=== PATIENT | male | born 1960 | race African-American/Black ===

== ENCOUNTER 2020-05-22 21:01 | Inpatient (IN) | payer BC ==
[~2020-05-22] VITALS: Ht 177.8 cm; Wt 64.5 kg
[2020-05-22 21:45] VITALS: BP 170/69
[2020-05-22 22:06] LABS: BASOPHILS 0.2 % (0-2); EOSINOPHILS 0.2 % (0-7); HEMATOCRIT 25.6 % (42.0-54.0); HEMOGLOBIN 8.2 g/dL (13.5-17.5); IMMATURE GRANULOCYTES 0.3 % (0-5); LYMPHOCYTES 9.1 % (15-50); MCV 75.1 fL (80.0-100.0); MEAN PLATELET VOLUME 9.4 fL (7.4-10.4); MONOCYTES 3.9 % (2-11); NEUTROPHILS 86.3 % (40-80); PLATELET COUNT 310 10x3/uL (130-400); RBC 3.41 10x6/uL (4.20-6.10); RDW 13.1 % (11.5-14.5)
[2020-05-22 22:20] LABS: INR 1.11 (0.85-1.17); PROTIME 14.2 SECONDS (11.6-15.0)
[2020-05-22 22:21] LABS: APTT 36.1 SECONDS (22.8-39.4)
[2020-05-22 22:27] LABS: CALC OSMOLALITY 317 mosm/kg (275-300); CALCIUM 8.3 mg/dL (8.5-10.1); CARBON DIOXIDE 19.1 mmol/L (21.0-32.0); CHLORIDE - SERUM 106 mmol/L (98-107); CREATININE - SERUM 11.5 mg/dL (0.6-1.3); GLUCOSE 175 mg/dL (74-106); POTASSIUM - SERUM 5.4 mmol/L (3.5-5.1); SODIUM 139 mmol/L (136-145); eGFR NON AFRICAN AMERICAN 5 mL/min (90-120)
[2020-05-22 22:34] LABS: UREA NITROGEN 113 mg/dL (7-18)
[2020-05-22 22:46] LABS: ALBUMIN 1.7 g/dL (3.4-5.0); ALKALINE PHOSPHATASE 44 U/L (30-120); ALT (SGPT) 15 U/L (10-68); BILIRUBIN - TOTAL 0.23 mg/dL (0.2-1.3); CREATINE KINASE 175 UL (21-232); MAGNESIUM - SERUM 2.5 mg/dL (1.8-2.4); PROTEIN - SERUM 6.7 g/dL (6.4-8.2); TROPONIN-I 0.053 ng/mL (0.000-0.060)
[2020-05-22 23:45] VITALS: BP 172/86
[2020-05-23 01:17] VITALS: BP 168/81
[2020-05-23] MEDS ORDERED: OMEPRAZOLE40 MG PO (03:00)
[2020-05-23] MEDS ORDERED: NORVASC10 MG PO (03:00)
[2020-05-23] MEDS ORDERED: FUROSEMIDE20 MG PO (03:01)
[2020-05-23] MEDS ORDERED: PLAVIX75 MG PO (03:01)
[2020-05-23] MEDS ORDERED: COREG12.5 MG PO (03:02)
[2020-05-23 03:54] VITALS: BP 194/92
--- NOTE | 2020-05-23 04:18 | NUR ---
SPOKE WITH , AUSTEN, PASSCODE PROVIDED. UPDATE GIVEN, QUESTIONS ANSWERED.
[2020-05-23 05:05] VITALS: BMI 17.7
[2020-05-23 07:17] VITALS: BP 202/121
[2020-05-23 07:28] LABS: ALBUMIN 1.4 g/dL (3.4-5.0); ANION GAP 22.7 mmol/L (8-16); BILIRUBIN - TOTAL 0.2 mg/dL (0.2-1.3); CREATININE - SERUM 10.8 mg/dL (0.6-1.3); MAGNESIUM - SERUM 2.5 mg/dL (1.8-2.4); PHOSPHOROUS 8.4 mg/dL (2.5-4.9); POTASSIUM - SERUM 4.9 mmol/L (3.5-5.1); PROTEIN - SERUM 5.9 g/dL (6.4-8.2); TROPONIN-I 0.048 ng/mL (0.000-0.060)
[2020-05-23 07:37] LABS: BASOPHILS 0.2 % (0-2); EOSINOPHILS 0.2 % (0-7); HEMATOCRIT 22.7 % (42.0-54.0); IMMATURE GRANULOCYTES 0.3 % (0-5); LYMPHOCYTES 7.7 % (15-50); MCH 24.3 pg (26.0-34.0); MCHC 32.2 g/dL (31.0-37.0); MCV 75.4 fL (80.0-100.0); MEAN PLATELET VOLUME 9.3 fL (7.4-10.4); MONOCYTES 3.2 % (2-11); NEUTROPHILS 88.4 % (40-80); PLATELET COUNT 321 10x3/uL (130-400); RBC 3.01 10x6/uL (4.20-6.10); RDW 13.2 % (11.5-14.5); WBC 6.5 10x3/uL (4.8-10.8)
[2020-05-23 07:41] LABS: HEMOGLOBIN 7.3 g/dL (13.5-17.5)
[2020-05-23 07:45] LABS: CARBON DIOXIDE 14.2 mmol/L (21.0-32.0)
--- NOTE | 2020-05-23 10:16 | NUR ---
PT AWAKE AND ORIENTED, LYING IN BED. NOTED LETHARGERY, PT STATED HE FEELS TIRED. TO BE GIVEN BLOOD TODAY FOR LOW H/H. NO COMPLAINTS OR CONCERNS, TOOK MEDICATIONS WIHTOUT COMPLICATIONS. WILL CONT. TO MONITOR. CL IN REACH,S RX2.
[2020-05-23 10:51] LABS: % SATURATION 26 % (15-55); IRON 19 ug/dl (35-150); TOTAL IRON BIND CAPACITY 73 ug/dl (260-445)
[2020-05-23 10:52] LABS: UNSAT IRON BIND CAPACITY 54 ug/dl (150-375)
--- NOTE | 2020-05-23 12:49 | NUR ---
PT AWAKE AND ORIENTED LYING INBED. GAVE VERBAL CONSENT FOR BLOOD AND FO RECIEVING HIS RECORDS FROM THE [facility] GIMP TACKER. CL IN REACH,S RX2. WILL CNT. TO MONITOR.
[2020-05-23 13:03] LABS: URIC ACID 12.1 mg/dL (2.6-7.2)
[2020-05-23 13:52] VITALS: BMI 17.6
--- NOTE | 2020-05-23 15:02 | NUR ---
1U PRBC IN PROGRESS OF ADMINISTRATION. PT TOLERATING WITHOUT COMPLICATIONS. CL IN REACH, SRX2.
[2020-05-23 15:15] LABS: UDS - AMPHET NEGATIVE QUAL (NEGATIVE); UDS - BARB NEGATIVE QUAL (NEGATIVE); UDS - BENZO NEGATIVE QUAL (NEGATIVE); UDS - COCAINE NEGATIVE QUAL (NEGATIVE); UDS - OPIATE NEGATIVE QUAL (NEGATIVE); UDS - PCP NEGATIVE QUAL (NEGATIVE); UDS - THC NEGATIVE QUAL (NEGATIVE)
[2020-05-23 16:04] LABS: BILIRUBIN NEGATIVE (NEGATIVE); KETONE NEGATIVE (NEGATIVE); NITRITE NEGATIVE (NEGATIVE); UROBILINOGEN NORMAL mg/dL (< 2)
--- NOTE | 2020-05-23 16:24 | NUR ---
1U PRBC COMPLETE. PT TOLERATEDWELL. CL IN REACH, SRX2.
--- NOTE | 2020-05-23 18:26 | NUR ---
I have reviewed this patient and I concur with the Shift Assessment completed by the Licensed Practical Nurse today this shift.
--- NOTE | 2020-05-23 19:00 | NUR ---
REPORT RECEIVED, WILL CONTINUE POC. PATIENT IS AAOX4, LYING IN SEMI-FOWLERS POSITION. NO S/S OF DISTRESS OBSERVED, RR EVEN AND UNLABORED ON ROOM AIR. PIV TO LT HAND INFUSING SODIUM BICARB @ 75ML/HR. PATIENT DENIES NEEDS AT THIS TIME. CL IN REACH, BED LOCKED AND LOWERED. COVID 19 PRECAUTIONS MAINTAINED. WILL CTM.
[2020-05-23 20:00] VITALS: BP 200/86
--- NOTE | 2020-05-23 21:00 | NUR ---
BP 200/86 PRN APRESOLINE ADMINISTERED PER ORDERS.
[2020-05-23 21:26] LABS: HEMATOCRIT 26.7 % (42.0-54.0); HEMOGLOBIN 8.7 g/dL (13.5-17.5)
[2020-05-24] VITALS: BP 188/75
[2020-05-24 04:00] VITALS: BP 185/84
[2020-05-24 07:02] LABS: CALCIUM 7.7 mg/dL (8.5-10.1); CREATININE - SERUM 10.3 mg/dL (0.6-1.3)
[2020-05-24 07:20] LABS: ANION GAP 18.2 mmol/L (8-16); CARBON DIOXIDE 20.9 mmol/L (21.0-32.0); POTASSIUM - SERUM 4.1 mmol/L (3.5-5.1)
[2020-05-24 07:46] LABS: BASOPHILS 0.1 % (0-2); EOSINOPHILS 0.4 % (0-7); HEMATOCRIT 22.4 % (42.0-54.0); IMMATURE GRANULOCYTES 0.8 % (0-5); LYMPHOCYTES 5.3 % (15-50); MCH 24.6 pg (26.0-34.0); MCHC 32.6 g/dL (31.0-37.0); MCV 75.4 fL (80.0-100.0); MEAN PLATELET VOLUME 9.5 fL (7.4-10.4); MONOCYTES 2.5 % (2-11); NEUTROPHILS 90.9 % (40-80); PLATELET COUNT 355 10x3/uL (130-400); RBC 2.97 10x6/uL (4.20-6.10); RDW 13.7 % (11.5-14.5)
[2020-05-24 07:47] LABS: WBC 8.4 10x3/uL (4.8-10.8)
[2020-05-24 07:48] LABS: HEMOGLOBIN 7.3 g/dL (13.5-17.5)
[2020-05-24 08:18] VITALS: BP 183/84
[2020-05-24 11:25] VITALS: BP 193/92
[2020-05-24 14:10] LABS: HEPATITIS C ANTIBODY 0.1 S/CO RAT (0.0-0.9)
--- NOTE | 2020-05-24 16:06 | NUR ---
CALLED AND SPOKE TO SERA CERVANTES ABOUT WHETHER THEY WANTED A SECOND BAG OF BLOOD THAT DR. MYRICK ORDERED. SHE STATED THEY ONLY WANTED THE 1 BAG. WILL NOTIFY BLOOD BANK
[2020-05-24 16:09] VITALS: BP 171/79
--- NOTE | 2020-05-24 18:31 | NUR ---
I have reviewed this patient and I concur with the Shift Assessment completed by the Licensed Practical Nurse today this shift.
[2020-05-24 20:00] VITALS: BP 185/80
--- NOTE | 2020-05-24 20:45 | NUR ---
PT TEMP 102.5, MEDICATED WITH TYLENOL 325MG SUPP X 1.
--- NOTE | 2020-05-24 22:24 | NUR ---
PT IN BED, AAO X 3, RESP EVEN AND UNLABORED, NO DISTRESS NOTED. CL IN REACH, SR UP X 2.
[2020-05-25] VITALS (10 sets, daily range): BP systolic 156–300; BP diastolic 75–140; Ht 177.8 cm; Wt 64.5 kg
[2020-05-25 07:15] LABS: BASOPHILS 0.1 % (0-2); EOSINOPHILS 0.3 % (0-7); IMMATURE GRANULOCYTES 1.1 % (0-5); LYMPHOCYTES 3.8 % (15-50); MCH 25.7 pg (26.0-34.0); MCHC 33.5 g/dL (31.0-37.0); MCV 76.5 fL (80.0-100.0); MEAN PLATELET VOLUME 9.5 fL (7.4-10.4); MONOCYTES 1.6 % (2-11); NEUTROPHILS 93.1 % (40-80); PLATELET COUNT 366 10x3/uL (130-400); RDW 13.9 % (11.5-14.5)
[2020-05-25 07:20] LABS: HEMOGLOBIN 10.4 g/dL (13.5-17.5); RBC 4.05 10x6/uL (4.20-6.10); WBC 12.5 10x3/uL (4.8-10.8)
[2020-05-25 07:26] LABS: ANION GAP 22.1 mmol/L (8-16); CALCIUM 8.1 mg/dL (8.5-10.1); CARBON DIOXIDE 19.8 mmol/L (21.0-32.0); CREATININE - SERUM 9.2 mg/dL (0.6-1.3); PHOSPHOROUS 6.8 mg/dL (2.5-4.9); POTASSIUM - SERUM 3.9 mmol/L (3.5-5.1)
[2020-05-25 08:01] LABS: C-REACTIVE PROTEIN 38.5 mg/dL (0.0-0.9)
[2020-05-25 10:35] LABS: ERYTHROCYTE SEDIMENTATION RATE 140 mm/hr (0-20)
[2020-05-25 12:25] LABS: CREATININE - URINE 92.7 mg/dL (30-125)
[2020-05-25 12:37] LABS: PRO/CRE RATIO URINE 7.8 mg/g; PROTEIN - URINE 727.4 mg/dL (0.0-11.9)
--- NOTE | 2020-05-25 13:41 | NUR ---
Nutrition Follow-up: Pt in droplet isolation; covid-19+. Chart reviewed. Per MD, pt with anorexia, N/V/D. Noted surgery consulted for dialysis catheter placement. Diet: [facility] Renal Wt: 142# (05/25) Labs noted: K+ 3.9, Glu 241, A1C 11.8, Ca 8.1, PO4 6.8, CRP 38.5 Meds noted: Phenergan, Zofran, Ferrlecit, Humalog, Protonix, electrolyte protocol -Change to [facility] renal carb consistent diet. -Encourage PO intake and honor food preferences within diet restrictions. -Offer nutrition supplements. -Monitor wt; noted daily wts ordered. -RD following.
--- NOTE | 2020-05-25 16:55 | EC ---
PATIENT:ROSCOE BARBOSA DATE OF SERVICE: 05/22/20 SEX: M MEDICAL RECORD: [id number] DATE OF : 62 LOCATION:D.M2 D.213 AGE OF PATIENT: 60 ADMISSION DATE: 05/22/20 REFERRING PHYSICIAN: INTERPRETING PHYSICIAN: ATIF AQUINO MD ECHOCARDIOGRAM REPORT ECHO CHARGES 4 ECHO COMPLETE Date: 05/23/20 CLINICAL DIAGNOSIS: CMP, COVID+ ECHOCARDIOGRAPHIC MEASUREMENTS (adult normal given) AC root (d.<3.7cm) 3.0 cm LV Septum d (<1.2 cm> 1.3 cm Valve Excursion 1.9 cm LV Septum (systole) 1.7 cm Left Atria (s.<4.0cm> 3.3 cm LVPW d(<1.2cm) 0.9 cm RV (d.<2.3cm) 2.4 cm LVPW (sytole) 1.3 cm LV diastole(<5.6CM) 5.3 cm MV E-F(>70mm/sec) cm LV systole 3.9 cm LVOT Diameter 1.6 cm MV exc.(>10mm) 1.5 cm Est.ejection fraction (50-75%) % DOPPLER: LVIT cm/sec A 90 cm/sec E 70 cm/sec LA cm/sec RVSP 15 mmHg LVOT 91 cm/sec AOP1/2T m/s Asc. Ao 116 cm/sec RVOT 65 cm/sec RA cm/sec PA 67 cm/sec AV Gradient Peak 5.4 mmHg AV Mean 2.6 mmHg AV Area 1.6 cm MV Gradient Peak 4.1 mmHg MV Mean 2.2 mmHg MV Area cm COMMENTS: Icebox Man: Nova DANIEL Generator Worker: 3 Dr. Avelar TAPE# PACS Pericardial Effusion N DATE OF SERVICE: Adequate 2D, color-flow imaging, spectral Doppler, and M-Mode LVH is present. LV internal dimensions are normal. Wall motion is normal. EF is greater than or equal to 55%. Aortic valve is tricuspid. No evidence of stenosis by Doppler interrogation. Left atrium is normal at 3.3 cm. Mitral valve shows no prolapse. Trace MR. Right-sided chambers are grossly normal. Trace TR. ECHOCARDIOGRAM REPORT [id number] ROSCOE BARBOSA TRANSINT:[id number] Voice Confirmation ID: [id number] DOCUMENT ID: [id number] ATIF AQUINO MD at 1655 CC: [id number] DICTATION DATE: 05/24/2038 MANAGER SEARCH ENGINE: 05/24/20 1158 ADM IN [place] [id number] [place] [id number]
--- NOTE | 2020-05-25 18:00 | NUR ---
WHILE IN THE ROOM PT VOMITTED 300ML OF BLACK COFFEE GROUND EMISIS. PT PIV HAD ALSO CAME OUT. CATH TIP FULLY INTACT. IV RESITED TO RIGHT HAND X1 ATTEMPT. PT CONTINUOUS TO HAVE DIARRHEA. RAMIRO CALL NOTIFIED. AWAITING ORDERS. BED LOCKED AND IN LOWEST POSITION, CALL LIGHT WITHIN REACH. WILL CTM
--- NOTE | 2020-05-25 20:01 | NUR ---
SPOKE WITH RENAL DOCTOR OSTEOPATHIC MOE BOUCHER PT TO BE MOVED TO ICU PER ORDERS.
[2020-05-25 20:20] LABS: BASOPHILS 0.1 % (0-2); EOSINOPHILS 0 % (0-7); HEMOGLOBIN 10.7 g/dL (13.5-17.5); IMMATURE GRANULOCYTES 0.7 % (0-5); LYMPHOCYTES 3.4 % (15-50); MCH 25.7 pg (26.0-34.0); MCHC 33.4 g/dL (31.0-37.0); MCV 76.9 fL (80.0-100.0); MEAN PLATELET VOLUME 9.5 fL (7.4-10.4); MONOCYTES 1.8 % (2-11); PLATELET COUNT 401 10x3/uL (130-400); RBC 4.16 10x6/uL (4.20-6.10); RDW 14.1 % (11.5-14.5); WBC 11.6 10x3/uL (4.8-10.8)
[2020-05-25 20:38] LABS: ANION GAP 24.6 mmol/L (8-16); CALCIUM 7.8 mg/dL (8.5-10.1); CARBON DIOXIDE 16.8 mmol/L (21.0-32.0); CREATININE - SERUM 9.5 mg/dL (0.6-1.3); POTASSIUM - SERUM 3.4 mmol/L (3.5-5.1)
[2020-05-26] VITALS (18 sets, daily range): BP systolic 141–211; BP diastolic 75–119
[2020-05-26 00:14] LABS: HEMATOCRIT 29.4 % (42.0-54.0); HEMOGLOBIN 9.9 g/dL (13.5-17.5)
[2020-05-26 04:51] LABS: BASOPHILS 0.1 % (0-2); EOSINOPHILS 0.1 % (0-7); HEMATOCRIT 30.2 % (42.0-54.0); IMMATURE GRANULOCYTES 0.6 % (0-5); LYMPHOCYTES 3.9 % (15-50); MCH 25.4 pg (26.0-34.0); MCHC 33.1 g/dL (31.0-37.0); MCV 76.8 fL (80.0-100.0); MEAN PLATELET VOLUME 9.5 fL (7.4-10.4); MONOCYTES 2.6 % (2-11); NEUTROPHILS 92.7 % (40-80); PLATELET COUNT 423 10x3/uL (130-400); RBC 3.93 10x6/uL (4.20-6.10); RDW 14.1 % (11.5-14.5)
[2020-05-26 05:11] LABS: ANION GAP 18.4 mmol/L (8-16); CALCIUM 8.2 mg/dL (8.5-10.1); CREATININE - SERUM 9.7 mg/dL (0.6-1.3); PHOSPHOROUS 8.3 mg/dL (2.5-4.9); POTASSIUM - SERUM 3.3 mmol/L (3.5-5.1)
[2020-05-26 05:42] LABS: CARBON DIOXIDE 23.9 mmol/L (21.0-32.0)
--- NOTE | 2020-05-26 06:34 | NUR ---
CALLED TO GIVE AN ALTERNATE NUMBER IF UNABLE TO REACH HER. GABO [phone].
[2020-05-26 09:12] LABS: ANA REFLEX - DIRECT Negative (Negative)
--- NOTE | 2020-05-26 17:44 | NUR ---
PT GETTING DIALYSIS.
--- NOTE | 2020-05-26 23:45 | NUR ---
PT TRANSFERRED FROM ICU TO 2131 AT THIS TIME, PT IN BED, AAO X 3, RESP EVEN AND UNLABORED, NO DISTRESS NOTED, CL IN REACH, SR UP X 2.
[2020-05-27 04:22] LABS: BASOPHILS 0.1 % (0-2); EOSINOPHILS 0 % (0-7); HEMOGLOBIN 9.4 g/dL (13.5-17.5); IMMATURE GRANULOCYTES 0.4 % (0-5); MCH 25.5 pg (26.0-34.0); MCHC 32.4 g/dL (31.0-37.0); MEAN PLATELET VOLUME 9.5 fL (7.4-10.4); NEUTROPHILS 93.5 % (40-80); PLATELET COUNT 358 10x3/uL (130-400); RBC 3.68 10x6/uL (4.20-6.10); RDW 14.1 % (11.5-14.5)
[2020-05-27 04:33] LABS: MCV 78.8 fL (80.0-100.0); WBC 9.9 10x3/uL (4.8-10.8)
[2020-05-27 04:39] LABS: ANION GAP 20.1 mmol/L (8-16); CALCIUM 7.9 mg/dL (8.5-10.1); CARBON DIOXIDE 23.7 mmol/L (21.0-32.0); CREATININE - SERUM 7.5 mg/dL (0.6-1.3); PHOSPHOROUS 8.1 mg/dL (2.5-4.9)
[2020-05-27 04:53] LABS: POTASSIUM - SERUM 3.8 mmol/L (3.5-5.1)
--- NOTE | 2020-05-27 07:38 | NUR ---
PT RECEIVED ASLEEP BUT AROUSED ON ENTERING ROOM. ZOFRAN INFUSING. NO COMPLAINTS OR NEEDS AT PRESENT.
[2020-05-27 08:49] VITALS: BP 183/84
[2020-05-27 11:52] VITALS: BP 198/96
--- NOTE | 2020-05-27 14:16 | NUR ---
Nutrition Follow-up: Per GI, no further emesis. S/p hemosplit placement yesterday; noted plans to start HD. Diet: Renal Wt: 142# (05/26) Labs noted: Na 147, K+ 3.8, Glu 203, A1C 11.8, Ca 7.9, PO4 8.1 Meds noted: Renagel, Florajen, zinc sulfate, vit D, vit C, Protonix, Humalog, Carafate, Zofran, electrolyte protocol -Change to renal carb consistent diet. -Encourage PO intake and honor food preferences within diet restrictions. -Monitor wt; noted daily wts ordered. -RD following.
[2020-05-27 16:09] LABS: ANCA - ANTIMYELOPEROXIDASE <9.0 U/mL (0.0-9.0); ANCA - ANTIPROTEINASE 3 <3.5 U/mL (0.0-3.5); ANCA - ATYPICAL <1:20 titer (Neg:<1:20); ANCA - CYTOPLASMIC <1:20 titer (Neg:<1:20); ANCA - PERINUCLEAR <1:20 titer (Neg:<1:20)
--- NOTE | 2020-05-27 17:35 | NUR ---
HOLDING ON IV MEDS AT PRESENT, PT IN MIDDLE OF DIALYSIS. WILL RUN WHEN FINISHED.
--- NOTE | 2020-05-27 19:30 | NUR ---
PT IN BED, AAO X 3, RESP EVEN AND UNLABORED, NO DISTRESS NOTED, CL IN REACH, SR UP X 2.
[2020-05-27 20:41] VITALS: BP 158/78
--- NOTE | 2020-05-28 03:15 | NUR ---
I have reviewed this patient and I concur with the Shift Assessment completed by the Licensed Practical Nurse today this shift.
[2020-05-28 05:37] VITALS: BP 161/82
[2020-05-28 05:37] LABS: BASOPHILS 0.1 % (0-2); EOSINOPHILS 0.1 % (0-7); HEMATOCRIT 29.6 % (42.0-54.0); HEMOGLOBIN 9.6 g/dL (13.5-17.5); IMMATURE GRANULOCYTES 0.6 % (0-5); LYMPHOCYTES 5.5 % (15-50); MCH 25.5 pg (26.0-34.0); MCHC 32.4 g/dL (31.0-37.0); MCV 78.5 fL (80.0-100.0); MEAN PLATELET VOLUME 10.1 fL (7.4-10.4); NEUTROPHILS 90.7 % (40-80); PLATELET COUNT 373 10x3/uL (130-400); RBC 3.77 10x6/uL (4.20-6.10); RDW 13.8 % (11.5-14.5); WBC 12.2 10x3/uL (4.8-10.8)
[2020-05-28 05:52] LABS: CALCIUM 7.9 mg/dL (8.5-10.1); CREATININE - SERUM 6.7 mg/dL (0.6-1.3)
[2020-05-28 05:58] LABS: ANION GAP 8.9 mmol/L (8-16); CARBON DIOXIDE 30.3 mmol/L (21.0-32.0); PHOSPHOROUS 5.5 mg/dL (2.5-4.9); POTASSIUM - SERUM 3.2 mmol/L (3.5-5.1)
--- NOTE | 2020-05-28 07:00 | NUR ---
RECEIVED REPORT. ASSUMED CARE OF PATIENT. PATIENT REMAINS IN DROPLET ISOLATION FOR COVID 19.
[2020-05-28 08:06] VITALS: BP 154/83
[2020-05-28 11:11] VITALS: BP 164/87
--- NOTE | 2020-05-28 14:13 | NUR ---
INITIATED AT 1407. PATIENT TOLERATING FFP ADMINISTRATION WELL. 2ND UNIT TO BE ADMINISTERED 24 HOURS HOUR 1ST UNIT INITIATED. VSS.
--- NOTE | 2020-05-28 14:22 | NUR ---
EXTRA SODIUM BICARB TAB IN PATIENT CASSETTE, NO MED PULLED FROM PYXIS AT THIS TIME.
[2020-05-28 16:09] VITALS: BP 150/71
--- NOTE | 2020-05-28 17:04 | NUR ---
FSBS 163. 4 UNITS HUMALOG ADMINISTERED PER SLIDING SCALE. NO DISTRESS. PATIENT STATES HE FEELS MUCH BETTER AFTER RECEIVING THE FFP. PATIENT IS NOW TRYING TO EAT AND HE IS SMILING.
--- NOTE | 2020-05-28 19:20 | NUR ---
RECEIVED REPORT, WILL ASSUME CARE OF PT, PT RESTING, DENIES ANY NEEDS AT THIS TIME, IV-R.WRIST-ZOFRAN @ 4.7, BED IS LOW, SRX2, CALL LIGHT IN REACH, WILL CONTINUE PLAN OF CARE, WATER AT BEDSIDE, WILL CONTINUE PLAN OF CARE
[2020-05-28 20:18] VITALS: BP 146/70
--- NOTE | 2020-05-29 03:29 | NUR ---
I have reviewed this patient and I concur with the Shift Assessment completed by the Licensed Practical Nurse today this shift.
[2020-05-29 04:45] VITALS: BP 153/70
[2020-05-29 06:53] LABS: BASOPHILS 0 % (0-2); EOSINOPHILS 2.6 % (0-7); HEMATOCRIT 27.1 % (42.0-54.0); HEMOGLOBIN 8.5 g/dL (13.5-17.5); IMMATURE GRANULOCYTES 1.1 % (0-5); LYMPHOCYTES 6.9 % (15-50); MCH 25.1 pg (26.0-34.0); MCHC 31.4 g/dL (31.0-37.0); MCV 80.2 fL (80.0-100.0); MEAN PLATELET VOLUME 9.5 fL (7.4-10.4); MONOCYTES 6.2 % (2-11); NEUTROPHILS 83.2 % (40-80); RBC 3.38 10x6/uL (4.20-6.10); RDW 13.6 % (11.5-14.5)
[2020-05-29 07:02] LABS: PLATELET COUNT 296 10x3/uL (130-400); WBC 7.2 10x3/uL (4.8-10.8)
[2020-05-29 07:32] LABS: ALBUMIN 1.5 g/dL (3.4-5.0); ANION GAP 14.4 mmol/L (8-16); BILIRUBIN - TOTAL 0.18 mg/dL (0.2-1.3); CALCIUM 7.4 mg/dL (8.5-10.1); CARBON DIOXIDE 24.2 mmol/L (21.0-32.0); MAGNESIUM - SERUM 2.2 mg/dL (1.8-2.4); PHOSPHOROUS 5.1 mg/dL (2.5-4.9); POTASSIUM - SERUM 3.6 mmol/L (3.5-5.1); PROTEIN - SERUM 5.5 g/dL (6.4-8.2)
--- NOTE | 2020-05-29 08:00 | NUR ---
PT LAYING SUPINE, RR EVEN AND UNLABORED. DENIES NEEDS OR PAIN AT THIS TIME. PT STATES HE IS VERY FATIGUED. NOT INTERESTED IN HAVING CONVERSATION, FLAT AFFECT. CALL LIGHT WITHIN REACH. BED IN LOWEST POSITION. WILL CONTINUE TO MONITOR.
[2020-05-29 09:10] VITALS: BP 147/72
[2020-05-29 11:57] VITALS: BP 169/78
[2020-05-29 16:05] VITALS: BP 167/75
--- NOTE | 2020-05-29 16:41 | NUR ---
I have reviewed this patient and I concur with the Shift Assessment completed by the Licensed Practical Nurse today this shift.
--- NOTE | 2020-05-29 19:29 | NUR ---
SPOKE WITH BALJINDER IN LAB ABOUT [facility] PLASMA STATUS, WAS TOLD THEY ONLY GOT 1 UNIT, HE THINKS THEY ARE OUT OF MATCH FOR PT, SAID HE WOULD CALL AND LET ME KNOW
--- NOTE | 2020-05-29 19:30 | NUR ---
RECEIVED REPORT, WILL ASSUME CARE OF PT, PT DENIES ANY NEEDS AT THIS TIME, BED IS LOW, SRX2, CALL LIGHT IN REACH, WILL CONTINUE PLAN OF CARE
--- NOTE | 2020-05-29 21:04 | NUR ---
AM MEDS FOUND AT BEDSIDE, PT WOULD ONLY TAKE HIS APRESOLINE
[2020-05-29 21:30] VITALS: BP 181/86
[2020-05-30 01:30] VITALS: BP 157/79
--- NOTE | 2020-05-30 03:30 | NUR ---
I have reviewed this patient and I concur with the Shift Assessment completed by the Licensed Practical Nurse today this shift.
[2020-05-30 04:35] VITALS: BP 159/77
[2020-05-30 07:33] LABS: BASOPHILS 0 % (0-2); EOSINOPHILS 2.8 % (0-7); HEMATOCRIT 28.2 % (42.0-54.0); HEMOGLOBIN 8.8 g/dL (13.5-17.5); IMMATURE GRANULOCYTES 1.4 % (0-5); LYMPHOCYTES 13.3 % (15-50); MCH 24.9 pg (26.0-34.0); MCHC 31.2 g/dL (31.0-37.0); MCV 79.9 fL (80.0-100.0); MEAN PLATELET VOLUME 9.6 fL (7.4-10.4); MONOCYTES 0.6 % (2-11); NEUTROPHILS 81.9 % (40-80); PLATELET COUNT 272 10x3/uL (130-400); RBC 3.53 10x6/uL (4.20-6.10); RDW 13.4 % (11.5-14.5); WBC 7.8 10x3/uL (4.8-10.8)
[2020-05-30 07:47] LABS: ALBUMIN 1.5 g/dL (3.4-5.0); ANION GAP 15.7 mmol/L (8-16); BILIRUBIN - TOTAL 0.15 mg/dL (0.2-1.3); CARBON DIOXIDE 22.7 mmol/L (21.0-32.0); CREATININE - SERUM 9.4 mg/dL (0.6-1.3); MAGNESIUM - SERUM 2.2 mg/dL (1.8-2.4); PHOSPHOROUS 5.4 mg/dL (2.5-4.9); POTASSIUM - SERUM 3.4 mmol/L (3.5-5.1); PROTEIN - SERUM 5.6 g/dL (6.4-8.2)
[2020-05-30 07:51] LABS: CALCIUM 7.4 mg/dL (8.5-10.1)
[2020-05-30 08:17] VITALS: BP 169/79
--- NOTE | 2020-05-30 09:36 | NUR ---
PT TEACHING DONE ON TAKING MEDICATIONS AND THE IMPORTANCE OF THEM. PT STATES HE IS NAUSEAS AND HE WILL TRY TO TAKE HEART AND BP MEDS. PT STATES LBM WAS THREE DAYS AGO. PT DID NOT EAT BREKFAST BUT STATES HE WILL TRY TO DRINK SOME APPLE JUICE. BED LOW. CL IN REACH. WILL CONTINUE TO MONITOR.
[2020-05-30 11:22] VITALS: BP 160/78
--- NOTE | 2020-05-30 11:22 | NUR ---
SPOKE WITH PT'S AUSTEN OVER THE PHONE AND GAVE HER UPDATE AND ANSWERED ALL HER QUESTIONS.
[2020-05-30 12:09] LABS: ANTI-GLOMERULAR BASMENT MEMBRN 3 units (0-20)
--- NOTE | 2020-05-30 13:34 | NUR ---
CALLED AND SPOKE WITH DIALYSIS AND THEY STATE THEY WILL SEE IF THEY CAN GIVE FFP WHEN PT GETS DIAYSIS. THEY STATE THEY WILL CALL ME BACK AND LET ME KNOW.
--- NOTE | 2020-05-30 14:07 | NUR ---
CALLED AND SPOKE WITH BLOOD BANK AND THEY STATE FFP CAN BE GIVEN DURING DIALYSIS. I VERBALIZED UNDERSTANDING AND CALLED DIALYSIS AND STATED THIS TO THEM AND THEY STATE THEY WILL GIVE IT DURING DIALYSIS. I VERBALIZED UNDERSTANDING.
--- NOTE | 2020-05-30 14:55 | NUR ---
PT REQUESTED [employer] TO TAKE AM HEART AND BP MEDS WITH AND WILL NOW TAKE THEM AFTER CONTINUOUSLY SAYING ALL DAY HE WILL TAKE THEM "IN A MINUTE."
[2020-05-30 15:26] VITALS: BP 185/89
--- NOTE | 2020-05-30 15:37 | NUR ---
I have reviewed this patient and I concur with the Shift Assessment completed by the Licensed Practical Nurse today this shift.
[2020-05-30 17:49] VITALS: BP 141/66
--- NOTE | 2020-05-30 18:24 | NUR ---
WENT AND GOT FFP FROM LAB AND DIALYSIS NURSE ELLIOT IN ROOM TO GIVE.
--- NOTE | 2020-05-30 19:30 | NUR ---
RECEIVED REPORT, WILL ASSUME CARE OF PT, PT RECEIVING DIALYSIS AT THIS TIME, DENIES ANY NEEDS AT THIS TIME, BED IS LOW, SRX2, CALL LIGHT IN REACH, WILL CONTINUE PLAN OF CARE
[2020-05-31 03:19] VITALS: BP 175/81
[2020-05-31 06:55] LABS: BASOPHILS 0.1 % (0-2); EOSINOPHILS 3.4 % (0-7); HEMOGLOBIN 8.1 g/dL (13.5-17.5); IMMATURE GRANULOCYTES 0.9 % (0-5); LYMPHOCYTES 6.7 % (15-50); MCH 25.4 pg (26.0-34.0); MCHC 32.4 g/dL (31.0-37.0); MCV 78.4 fL (80.0-100.0); MEAN PLATELET VOLUME 9.8 fL (7.4-10.4); MONOCYTES 6.4 % (2-11); NEUTROPHILS 82.5 % (40-80); PLATELET COUNT 250 10x3/uL (130-400); RBC 3.19 10x6/uL (4.20-6.10); WBC 7.9 10x3/uL (4.8-10.8)
[2020-05-31 07:08] LABS: ALBUMIN 1.6 g/dL (3.4-5.0); ANION GAP 9.4 mmol/L (8-16); BILIRUBIN - TOTAL 0.18 mg/dL (0.2-1.3); CALCIUM 7.3 mg/dL (8.5-10.1); CARBON DIOXIDE 27.6 mmol/L (21.0-32.0); CREATININE - SERUM 7.1 mg/dL (0.6-1.3); MAGNESIUM - SERUM 2.1 mg/dL (1.8-2.4); PHOSPHOROUS 4.8 mg/dL (2.5-4.9); PROTEIN - SERUM 5.5 g/dL (6.4-8.2)
--- NOTE | 2020-05-31 08:18 | NUR ---
PT RECEIVED AWAKE AND ALERT IN BED. NO NEEDS AT PRESENT.
[2020-05-31 08:20] VITALS: BP 156/75
[2020-05-31 10:12] LABS: HEPATITIS C ANTIBODY 0.2 S/CO RAT (0.0-0.9)
[2020-05-31 11:25] VITALS: BP 156/76
--- NOTE | 2020-05-31 14:11 | NUR ---
Nutrition Follow-up: Pt in droplet isolation; covid-19+. Nursing reports pt eating ok. Per GI pt continues with decreased appetite and some nausea. Diet: Renal Carb Consistent Wt: 142# (05/26) Labs noted: Na 135, K+ 3.0, Glu 193, Ca 7.3, Alb 1.6 Meds noted: Renagel, Florajen, Zofran, Protonix, Humalog, zinc sulfate, vit D, vit C, electrolyte protocol -Encourage PO intake and honor food preferences within diet restrictions. -Offer Nepro with meals. -Need new wt if possible; noted daily wts ordered. -RD following.
--- NOTE | 2020-05-31 14:52 | NUR ---
PT SLEEPING ALOT TODAY. STATES TIRED FROM YESTERDAY. TRYING TO EAT LUNCH NOW. URINAL BEING USED.
[2020-05-31 16:20] VITALS: BP 168/80
--- NOTE | 2020-05-31 19:49 | NUR ---
PT IN BED, AAO X 2, RESP EVEN AND UNLABORED, NO DISTRESS NOTED, CL IN REACH, SR UP X 2.
[2020-05-31 20:00] VITALS: BP 158/76
[2020-06-01] VITALS: BP 154/78
[2020-06-01 04:00] VITALS: BP 136/69
[2020-06-01 06:34] LABS: BASOPHILS 0.1 % (0-2); EOSINOPHILS 3.4 % (0-7); HEMATOCRIT 26.3 % (42.0-54.0); HEMOGLOBIN 8.4 g/dL (13.5-17.5); IMMATURE GRANULOCYTES 0.8 % (0-5); LYMPHOCYTES 7.5 % (15-50); MCH 24.9 pg (26.0-34.0); MCHC 31.9 g/dL (31.0-37.0); MEAN PLATELET VOLUME 9.6 fL (7.4-10.4); NEUTROPHILS 79.2 % (40-80); PLATELET COUNT 260 10x3/uL (130-400); RBC 3.37 10x6/uL (4.20-6.10); RDW 13.1 % (11.5-14.5); WBC 7.8 10x3/uL (4.8-10.8)
[2020-06-01 06:57] LABS: ALBUMIN 1.6 g/dL (3.4-5.0); ANION GAP 12.2 mmol/L (8-16); BILIRUBIN - TOTAL 0.14 mg/dL (0.2-1.3); CALCIUM 7.1 mg/dL (8.5-10.1); CARBON DIOXIDE 26.7 mmol/L (21.0-32.0); CREATININE - SERUM 8.1 mg/dL (0.6-1.3); PHOSPHOROUS 4.8 mg/dL (2.5-4.9); PROTEIN - SERUM 5.5 g/dL (6.4-8.2)
[2020-06-01 07:02] LABS: POTASSIUM - SERUM 2.9 mmol/L (3.5-5.1)
--- NOTE | 2020-06-01 07:40 | NUR ---
PT RECEIVED ASLEEP IN BED. NO SIGNS OF DISTRESS. CALL LIGHT IN USE.
[2020-06-01 08:48] VITALS: BP 157/73
[2020-06-01 12:39] VITALS: BP 191/88
[2020-06-01 15:46] VITALS: BP 180/93
--- NOTE | 2020-06-01 16:01 | MORECARE ---
CASE MANAGEMENT DISCHARGE SUMMARY PATIENT: ROSCOE BARBOSA UNIT: [id number] ADM DATE: 05/22/20 AGE: 60 : 62 SEX: M ROOM/BED: D.2132 AUTHOR: KYLEIGH LEACH PHYSICIAN: REFERRING PHYSICIAN: ARTEM NAIK MD DATE OF SERVICE: 06/01/20 Discharge Plan Patient Name: ROSCOE BARBOSA [facility] [facility] 1960 Planned Disposition: Anticipated Discharge Date: Discharge Date: Expected LOS: Initial Reviewer: [email or web address] Initial Review Date: 05/23/2020 Generated: 06/01/20 5:01 pm DCP- Discharge Planning Updated by [email or web address]: Mel Ricketts on 05/30/20 12:[address] CM spoke with Farheen the dialysis coordinator about outpatient dialysis chair. Farheen states she is working on placement, and initial labs are pending. Cm will continue assisting as needed with DC planning/needs. Mel Downeyjanice Patient Name: ROSCOE BARBOSA Page [id number] at 1601 All edits/amendments must be made on the electronic document DICTATION DATE: 06/01/20 160 LEAK DETECTOR: RONI 06/01/20 160 RPT#: [id number] DC DATE: STATUS: ADM IN [facility] [address] [place] [address] END OF REPORT
--- NOTE | 2020-06-01 16:10 | MORECARE ---
CASE MANAGEMENT DISCHARGE SUMMARY PATIENT: ROSCOE BARBOSA UNIT: [id number] ADM DATE: 05/22/20 AGE: 60 : 62 SEX: M ROOM/BED: D.2132 AUTHOR: HAYLEE,DOC PHYSICIAN: REFERRING PHYSICIAN: ARTEM NAIK MD DATE OF SERVICE: 06/01/20 Discharge Plan Patient Name: ROSCOE BARBOSA Facility: [facility]:[place] : 1960 Planned Disposition: Anticipated Discharge Date: Discharge Date: Expected LOS: Initial Reviewer: [email or web address] Initial Review Date: 05/23/2020 Generated: 06/01/20 5:10 pm Comments DCP- Discharge Planning Updated by [email or web address]: Mel Ricketts on 06/01/20 3:[address] Patient Name: ROSCOE BARBOSA Admission Status: ER Accout number: [id number] Admission Date: 05-22-2020 : 1960 Admission Diagnosis:COVID-19 Attending: HEENA, Current LOS: 10 Anticipated DC Date: Planned Disposition: Primary Insurance: [employer] [place] OUT OF STATE Discharge Planning Comments: CM met with patient to complete initial dc planning assessment. CM educated patient on the CM role and verbal consent given by patient to complete assessment. CM verified patient's address, phone number, and emergency contact phone numbers. Patient lives at home with his Lyndsey [phone]. At discharge patient plans to return home and feels this is a safe discharge. CM discussed availability of home health, rehab services, and medical equipment. Patient denied known discharge needs at this time. Pt verbalized declination to any rehab. Transportation provider at discharge will be Lyndsey . CM will continue to follow and will assist as needed with dc plans/needs. Wire Machine Cutter: Mel Ricketts DCP- Discharge Planning Updated by [email or web address]: Mel Ricketts on 06/01/20 3:[address] Late entry. 05/31/20 pt refused to talk to CM. Pt states he is busy the moment. CM will continue to assist in dc planning/needs. Mel Ricketts DCP- Discharge Planning Updated by [email or web address]: Mel Ricketts on 05/30/20 12:[address] CM spoke with Farheen the dialysis coordinator about outpatient dialysis chair. Farheen states she is working on placement, and initial labs are pending. Cm will continue assisting as needed with DC planning/needs. Mel Ricketts Last DP export: 06/01/20 3:01 p Patient Name: ROSCOE BARBOSA Page [id number] at 1610 All edits/amendments must be made on the electronic document DICTATION DATE: 06/01/20 1610 BITE BLOCK MAKER: RONI 06/01/20 1610 RPT#: [id number] DC DATE: STATUS: ADM IN [facility] [address] [place] [address] END OF REPORT
--- NOTE | 2020-06-01 16:20 | MORECARE ---
CASE MANAGEMENT DISCHARGE SUMMARY PATIENT: ROSCOE BARBOSA UNIT: [id number] ADM DATE: 05/22/20 AGE: 60 : 62 SEX: M ROOM/BED: D.2132 AUTHOR: HAYLEE,DOC PHYSICIAN: REFERRING PHYSICIAN: ARTEM NAIK MD DATE OF SERVICE: 06/01/20 Discharge Plan Patient Name: ROSCOE ABRBOSA Facility: [facility]:[place] : 1960 Planned Disposition: Anticipated Discharge Date: Discharge Date: Expected LOS: Initial Reviewer: [email or web address] Initial Review Date: 05/23/2020 Generated: 06/01/20 5:19 pm Comments DCP- Discharge Planning Updated by [email or web address]: Mel Ricketts on 06/01/20 3:[address] CM received a call from Lyndsey () [phone]. Lyndsey states she has osteoporosis and is unable to care for her at home. States she wants CM to force her into rehab in a group home. CM states she can encourage her into rehab, but it is his decision as long as he can make his own decisions. CM called pt in room about SNF. Pt states he will need to talk to his about rehab and will get back with CM. States CM can call back in the morning for the answer. Lyndsey states she wants CM to send referrals to [facility], and any facility in the surrounding areas. JOHN PAUL states the Dialysis coordinator is working on placement for outpatient dialysis. Lyndsey states it is ok to send referrals to all facilities in the [facility]. CM spoke with Evette from [facility] for referral. States they are unable to meet his dialysis needs at this time. CM spoke with Diana at [facility] who states they do not have an available male bed at this time. CM will continue to assist in dc planning/needs. Mel Ricketts MSN,RN,CM DCP- Discharge Planning Updated by [id number]: Mel Ricketts on 06/01/20 3:[address] Patient Name: ROSCOE BARBOSA Admission Status: ER Accout number: [id number] Admission Date: 05-22-2020 : 1960 Admission Diagnosis:COVID-19 Attending: HEENA Current LOS: 10 Anticipated DC Date: Planned Disposition: Primary Insurance: [employer] OUT OF STATE Discharge Planning Comments: CM met with patient to complete initial dc planning assessment. CM educated patient on the CM role and verbal consent given by patient to complete assessment. CM verified patient's address, phone number, and emergency contact phone numbers. Patient lives at home with his Lyndsey [phone]. At discharge patient plans to return home and feels this is a safe discharge. CM discussed availability of home health, rehab services, and medical equipment. Patient denied known discharge needs at this time. Pt verbalized declination to any rehab. Transportation provider at discharge will be Lyndsey . CM will continue to follow and will assist as needed with dc plans/needs. Farm Equipment Engine Mechanic: Mel Ricketts DCP- Discharge Planning Updated by [email or web address]: Mel Ricketts on 06/01/20 3:[address] Late entry. 05/31/20 pt refused to talk to CM. Pt states he is busy the moment. CM will continue to assist in dc planning/needs. Mel Ricketts DCP- Discharge Planning Updated by [email or web address]: Mel Ricketts on 05/30/20 12:[address] CM spoke with Farheen the dialysis coordinator about outpatient dialysis chair. Farheen states she is working on placement, and initial labs are pending. Cm will continue assisting as needed with DC planning/needs. Mel Ricketts Last DP export: 06/01/20 3:10 p Patient Name: ROSCOE BARBOSA Page [phone] at 1620 All edits/amendments must be made on the electronic document DICTATION DATE: 06/01/20 1620 INTEGRATION LEAD: RONI 06/01/20 1620 RPT#: [id number] DC DATE: STATUS: ADM IN [facility] [address] [place] [address] END OF REPORT
--- NOTE | 2020-06-01 19:30 | NUR ---
PT IN BED, RESP EVEN AND UNLABORED, NO DISTRESS NOTED, PT GETTING DIALYSIS AT THIS TIME. CL IN REACH, SR UP X 2.
[2020-06-01 20:00] VITALS: BP 148/82
[2020-06-02 04:00] VITALS: BP 176/87
[2020-06-02 06:47] LABS: BASOPHILS 0 % (0-2); EOSINOPHILS 0 % (0-7); HEMATOCRIT 22.9 % (42.0-54.0); IMMATURE GRANULOCYTES 0.4 % (0-5); LYMPHOCYTES 5.3 % (15-50); MCH 25.3 pg (26.0-34.0); MCHC 31.9 g/dL (31.0-37.0); MCV 79.2 fL (80.0-100.0); MEAN PLATELET VOLUME 10.5 fL (7.4-10.4); MONOCYTES 1.8 % (2-11); NEUTROPHILS 92.5 % (40-80); PLATELET COUNT 236 10x3/uL (130-400); RBC 2.89 10x6/uL (4.20-6.10); RDW 13.2 % (11.5-14.5); WBC 7.4 10x3/uL (4.8-10.8)
[2020-06-02 06:54] LABS: HEMOGLOBIN 7.3 g/dL (13.5-17.5)
[2020-06-02 08:08] VITALS: BP 150/74
[2020-06-02 08:27] LABS: ALBUMIN 1.5 g/dL (3.4-5.0); BILIRUBIN - TOTAL 0.1 mg/dL (0.2-1.3); CARBON DIOXIDE 23.1 mmol/L (21.0-32.0); CREATININE - SERUM 6.5 mg/dL (0.6-1.3); MAGNESIUM - SERUM 1.7 mg/dL (1.8-2.4); PHOSPHOROUS 4.3 mg/dL (2.5-4.9)
[2020-06-02 08:28] LABS: ANION GAP 13.8 mmol/L (8-16)
[2020-06-02 08:31] LABS: CALCIUM 6.7 mg/dL (8.5-10.1); POTASSIUM - SERUM 2.9 mmol/L (3.5-5.1)
[2020-06-02 12:15] VITALS: BP 150/72
--- NOTE | 2020-06-02 13:46 | OP ---
PATIENT NAME: ROSCOE BARBOSA MEDICAL RECORD: [id number] :62 LOCATION:D.M2 D.2 ADMISSION DATE:05/22/20 SURGEON: JENNIFER HASSAN MD DATE OF OPERATION: 05/26/2020 PREOPERATIVE DIAGNOSES: 1. Acute renal failure. 2. COVID positive. 3. Coronary artery disease. POSTOPERATIVE DIAGNOSES: 1. Acute renal failure. 2. COVID positive. 3. Coronary artery disease. PROCEDURE: Right IJ 19 cm HemoSplit catheter placement. SURGEON: Jennifer Hassan MD REPORT OF PROCEDURE: The patient's right neck was prepped and draped in sterile fashion. Using ultrasound guidance, a needle was used to cannulate the right internal jugular vein and a guidewire was advanced with ease. Fluoro was used to note that the wire was in good position in the venous system. A skin incision was made on the right chest and a catheter was tunneled between this pouch and the wire exit site. The multiple dilators were placed over the wire followed by the dilator trocar device. The wire and dilator were removed and the catheter tip was advanced through the trocar. We then pulled the catheter tip back until it rested in good position at the right atrial superior vena caval junction. The catheter aspirated nonpulsatile dark blood and flushed easily with heparinized saline. This was sutured into place with 3-0 nylons and the skin incisions were closed with subcutaneous 5-0 Monocryl. COMPLICATIONS: None. CONDITION: Stable. ANESTHESIA: General endotracheal. BLOOD LOSS: Minimal. TRANSINT:[id number] Voice Confirmation ID: [id number] DOCUMENT ID: [id number] JENNIFER HASSAN MD at 1346 CC: [id number] DICTATION DATE: 05/26/20 1436 POT LINING SUPERVISOR: 05/26/[address] [facility] [address] [place] [address]
--- NOTE | 2020-06-02 14:09 | NUR ---
Nutrition Follow-up: Pt in droplet isolation; covid-19+. Nursing reports pt appetite/PO intake fluctuates. GI signed off. Awaiting placement. Diet: Renal Carb Consistent WT: 142# (05/26) Labs noted: K+ 2.9, Glu 231, Ca 6.7, PO4 4.3, Mg 1.7, Alb 1.5 Meds noted: Renagel, Florajen, zinc sulfate, vit D, vit C, Protonix, Humalog, Carafate, Zofran, electrolyte protocol -Encourage PO intake and honor food preferences within diet restrictions. -Need new wt if possible. -RD following.
--- NOTE | 2020-06-02 14:24 | NUR ---
0700--LYING IN BED W/EYES CLOSED, RESP EVEN AND UNLABORED ON RA. NO DISTRESS NOTED. 0900--MEDS ADMINISTERED WHOLE IN [place]/REQUEST PT TOLERATED ALL WELL. 1100-LYING IN BED W/EYES CLOSED, AROUSES EASILY, MEDS GIVEN W/PUDDING, POTASSIUM GIVEN FOR CL POT LEVEL OF 2.9--NO DISTRESS NOTED. 1300-LYING IN BED AWAKE, ALERT, REQUET TO WATCH TV--TV ON THE PT REQUEST FOR TV TO BE TURNED BACK OFF--DENIES ANY FURTHER NEEDS.
--- NOTE | 2020-06-02 16:31 | MORECARE ---
CASE MANAGEMENT DISCHARGE SUMMARY PATIENT: ROSCOE BARBOSA UNIT: [id number] ADM DATE: 05/22/20 AGE: 60 : 62 SEX: M ROOM/BED: D.2132 AUTHOR: HAYLEEDOC PHYSICIAN: REFERRING PHYSICIAN: ARTEM NAIK MD DATE OF SERVICE: 06/02/20 Discharge Plan Patient Name: ROSCOE BARBOSA Facility: [facility]:[place] : 1960 Planned Disposition: Anticipated Discharge Date: Discharge Date: Expected LOS: Initial Reviewer: [email or web address] Initial Review Date: 05/23/2020 Generated: 06/02/20 5:30 pm Comments DCP- Discharge Planning Updated by [email or web address]: Mel Ricketts on 06/02/20 3:[address] CM received a call from Lyndsey about rehabs. Lyndsey states CM should send referrals to [place], [place], [place] or anywhere that will take him. CM instructed Lyndsey that the pt is getting set up with an outpatient dialysis chair time. States that SNF may not accept the patient to a dialysis center several hours away. Reeducated to Lyndsey that her is his own decision maker, states that he has voiced several times that he does not want to go to rehab. Lyndsey states that she just spoke with her and she convinced him to go to rehab, but he wants a couple of days home prior to going. Lyndsey states she is in quarantine so she cant pick him up or take him to dialysis. CM educated Lyndsey on maintaining social distancing, infection prevention, and hand washing. CM educated that when the patient is discharged she will drive up to the hospital, and then call the nurses station to have her brought out to her car. Lyndsey verbalized understanding. Cm called pt room and spoke to him. Pt states he feels weak, but PT is working with him. States he does not wan to go to rehab. Mel Ricketts MSN,RN,CM DCP- Discharge Planning Updated by [id number]: Mel Ricketts on 06/01/20 3:[address] CM received a call from Lyndsey () [phone]. Lyndsey states she has osteoporosis and is unable to care for her at home. States she wants CM to force her into rehab in a usp. CM states she can encourage her into rehab, but it is his decision as long as he can make his own decisions. CM called pt in room about SNF. Pt states he will need to talk to his about rehab and will get back with CM. States CM can call back in the morning for the answer. Lyndsey states she wants CM to send referrals to [place], and any facility in the surrounding areas. JOHN PAUL states the Dialysis coordinator is working on placement for outpatient dialysis. Lyndsey states it is ok to send referrals to all facilities in the [facility]. CM spoke with Evette from [facility] for referral. States they are unable to meet his dialysis needs at this time. CM spoke with Diana at [place] who states they do not have an available male bed at this time. CM will continue to assist in dc planning/needs. Mel STOCK,RN,CM DCP- Discharge Planning Updated by [email or web address]: Mel Ricketts on 06/01/20 3:[address] Patient Name: ROSCOE BARBOSA Admission Status: ER Accout number: [id number] Admission Date: 05-22-2020 : 1960 Admission Diagnosis:COVID-19 Attending: HEENA, Current LOS: 10 Anticipated DC Date: Planned Disposition: Primary Insurance: [employer] OUT OF STATE Discharge Planning Comments: CM met with patient to complete initial dc planning assessment. CM educated patient on the CM role and verbal consent given by patient to complete assessment. CM verified patient's address, phone number, and emergency contact phone numbers. Patient lives at home with his Lyndsey [phone]. At discharge patient plans to return home and feels this is a safe discharge. CM discussed availability of home health, rehab services, and medical equipment. Patient denied known discharge needs at this time. Pt verbalized declination to any rehab. Transportation provider at discharge will be Lyndsey . CM will continue to follow and will assist as needed with dc plans/needs. Business Management Manager: Mel Ricketts DCP- Discharge Planning Updated by [email or web address]: Mel Ricketts on 06/01/20 3:[address] Late entry. 05/31/20 pt refused to talk to CM. Pt states he is busy the moment. CM will continue to assist in dc planning/needs. Mel Ricketts DCP- Discharge Planning Updated by [email or web address]: Mel Ricketts on 05/30/20 12:[address] CM spoke with Farheen the dialysis coordinator about outpatient dialysis chair. Farheen states she is working on placement, and initial labs are pending. Cm will continue assisting as needed with DC planning/needs. Mel Ricketts Last DP export: 06/01/20 3:20 p Patient Name: ROSCOE BARBOSA Page [id number] at 1631 All edits/amendments must be made on the electronic document DICTATION DATE: 06/02/201629 HOUSE PRINCIPAL: RONI 06/02/20 163 RPT#: [id number] DC DATE: STATUS: ADM IN [facility] [address] [place] [address] END OF REPORT
[2020-06-02 16:32] VITALS: BP 132/73
--- NOTE | 2020-06-02 17:55 | NUR ---
1745--BLOOD INFUSION STARTED TO RIGHT WRIST 20GA IV SITE @75CC/HR, BLOOD CONSENT SIGNED/VERBAL INSTRUCTION FROM COVID PT AND WITNESSED/2 NURSES, HGB IS 7.3. PT TOLERATING BLOOD WELL. WILL CONTINUE TO MONITOR.
--- NOTE | 2020-06-02 19:30 | NUR ---
PT IN BED, AAO X 3, RESP EVEN AND UNLABORED, NO DISTRESS NOTED, CL IN REACH, SR UP X 2.
[2020-06-02 20:00] VITALS: BP 149/77
--- NOTE | 2020-06-02 20:30 | NUR ---
BLOOD COMPLETE AT THIS TIME, NO S/S OF REACTION NOTED, PT AAO X 3, RESP EVEN AND UNLABORED, NO DISTRESS NOTED,CL IN REACH, SR UP X 2.
[2020-06-03] VITALS: BP 148/75
[2020-06-03 04:00] VITALS: BP 148/76
[2020-06-03 08:18] LABS: BASOPHILS 0.1 % (0-2); EOSINOPHILS 0.1 % (0-7); HEMATOCRIT 26.4 % (42.0-54.0); HEMOGLOBIN 8.4 g/dL (13.5-17.5); IMMATURE GRANULOCYTES 0.6 % (0-5); LYMPHOCYTES 4.1 % (15-50); MCH 25.8 pg (26.0-34.0); MCHC 31.8 g/dL (31.0-37.0); MEAN PLATELET VOLUME 10.4 fL (7.4-10.4); MONOCYTES 4.3 % (2-11); NEUTROPHILS 90.8 % (40-80); PLATELET COUNT 244 10x3/uL (130-400); RBC 3.26 10x6/uL (4.20-6.10); RDW 13.7 % (11.5-14.5)
[2020-06-03 08:19] LABS: WBC 11.3 10x3/uL (4.8-10.8)
[2020-06-03 08:24] LABS: ALBUMIN 1.6 g/dL (3.4-5.0); BILIRUBIN - TOTAL 0.08 mg/dL (0.2-1.3); CALCIUM 7.9 mg/dL (8.5-10.1); CARBON DIOXIDE 26.2 mmol/L (21.0-32.0); PHOSPHOROUS 3.9 mg/dL (2.5-4.9); PROTEIN - SERUM 5.3 g/dL (6.4-8.2)
[2020-06-03 08:28] LABS: ANION GAP 9.4 mmol/L (8-16); POTASSIUM - SERUM 3.6 mmol/L (3.5-5.1)
--- NOTE | 2020-06-03 08:31 | NUR ---
0703-LYING IN BED W/EYES CLOSED, PROTONIX ADMINISTERED/ORDER, PT TOLERATED WELL, DENIES ANY FURTHER NEEDS.
[2020-06-03 08:38] VITALS: BP 139/72
[2020-06-03 14:54] VITALS: BP 138/78
--- NOTE | 2020-06-03 19:13 | NUR ---
PT HAD DIALYSIS EARLIER TODAY, DIALYSIS NURSE REPORTS PT DID WELL--B/P WNL, 1L FLUID REMOVED.
--- NOTE | 2020-06-03 19:22 | NUR ---
RECIEVED UP IN BED WITH EYES OPEN AND TV ON. ALERT AND ORIENTED X4. NONCOMPLIANT WITH DIET. DRINKING A LEMON KENAITZE JAZMINE AND REQUESTING TOBIAS TO TAKE HIS MEDICATION WITH. HAS A EMPTY CARTON OF TOBIAS ON OVERBED TABLE. ATTEMPTED TO EDUCATE HIM OF THE DANGERS OF NOT CONTROLLING HIS BLOOD SUGARS AND HIS REPLY WAS "MY AUNT HAD BOTH OF HER LEGS REMOVED.". ASKED HIM IF HE WANTED THAT TO HAPPEN TO HIM AND HE WOULD NOT ANSWER.
[2020-06-03 20:30] VITALS: BP 147/75
[2020-06-04 00:33] VITALS: BP 134/64
[2020-06-04 04:30] VITALS: BP 139/67
[2020-06-04 06:26] LABS: BASOPHILS 0.1 % (0-2); EOSINOPHILS 0.1 % (0-7); HEMATOCRIT 26.5 % (42.0-54.0); HEMOGLOBIN 8.4 g/dL (13.5-17.5); IMMATURE GRANULOCYTES 0.4 % (0-5); LYMPHOCYTES 7.3 % (15-50); MCH 25.7 pg (26.0-34.0); MCHC 31.7 g/dL (31.0-37.0); MEAN PLATELET VOLUME 10.7 fL (7.4-10.4); MONOCYTES 9.5 % (2-11); NEUTROPHILS 82.6 % (40-80); PLATELET COUNT 243 10x3/uL (130-400); RBC 3.27 10x6/uL (4.20-6.10); RDW 13.7 % (11.5-14.5); WBC 9.3 10x3/uL (4.8-10.8)
[2020-06-04 06:45] LABS: ALBUMIN 1.6 g/dL (3.4-5.0); ANION GAP 10.5 mmol/L (8-16); BILIRUBIN - TOTAL 0.16 mg/dL (0.2-1.3); CALCIUM 7.7 mg/dL (8.5-10.1); CARBON DIOXIDE 28.5 mmol/L (21.0-32.0); CREATININE - SERUM 6.9 mg/dL (0.6-1.3); PROTEIN - SERUM 5.2 g/dL (6.4-8.2)
--- NOTE | 2020-06-04 07:00 | NUR ---
RECEIVED REPORT. ASSUMED CARE OF PATIENT. PATIENT REMAINS IN DROPLET ISOLATION FOR COVID-19.
[2020-06-04 08:25] VITALS: BP 127/64
--- NOTE | 2020-06-04 11:30 | NUR ---
FSBS 355. 16 UNITS HUMULIN ADMINISTERED PER SLIDING SCALE.
[2020-06-04 12:13] VITALS: BP 112/51
--- NOTE | 2020-06-04 15:16 | NUR ---
PATIENT NONCOMPLIANT. PATIENT PROVIDES MULTIPLE EXCUSES TO NOT PARTICIPATING IN THERAPY AND NOT WANTING TO TAKE HIS MEDICATIONS. EDUCATION ON DISEASE PROCESS PROVIDED TO PATIENT. CALL LIGHT WITHIN REACH.
--- NOTE | 2020-06-04 16:59 | NUR ---
FSBS 236. 8 UNITS HUMULIN ADMINISTERED PER SLIDING SCALE.
[2020-06-04 17:09] VITALS: BP 144/69
--- NOTE | 2020-06-04 19:11 | NUR ---
RECIEVED UP IN BED WIT EYES OPEN AND TV ON. ALERT AND ORIETNED X4 AND REMAINS BEDFAST. HEMOSPLIT TO RT CHEST AND IV TO RT HAND SL. DENIES ANY NEEDS AT THIS TIME.
[2020-06-04 20:30] VITALS: BP 154/73
[2020-06-05 00:30] VITALS: BP 135/62
[2020-06-05 04:13] VITALS: BP 137/65
--- NOTE | 2020-06-05 07:00 | NUR ---
RECEIVED REPORT. ASSUMED CARE OF PATIENT. PATIENT REMAINS IN DROPLET ISOLATION FOR COVID-19.
[2020-06-05 07:32] LABS: BASOPHILS 0.1 % (0-2); EOSINOPHILS 0.1 % (0-7); HEMATOCRIT 27.4 % (42.0-54.0); HEMOGLOBIN 8.8 g/dL (13.5-17.5); IMMATURE GRANULOCYTES 0.8 % (0-5); LYMPHOCYTES 11.5 % (15-50); MCHC 32.1 g/dL (31.0-37.0); MCV 81.1 fL (80.0-100.0); MEAN PLATELET VOLUME 11.4 fL (7.4-10.4); MONOCYTES 9.1 % (2-11); NEUTROPHILS 78.4 % (40-80); PLATELET COUNT 271 10x3/uL (130-400); RBC 3.38 10x6/uL (4.20-6.10); RDW 13.8 % (11.5-14.5); WBC 9.3 10x3/uL (4.8-10.8)
[2020-06-05 07:53] LABS: ALBUMIN 1.7 g/dL (3.4-5.0); ANION GAP 7.5 mmol/L (8-16); BILIRUBIN - TOTAL 0.19 mg/dL (0.2-1.3); CALCIUM 8.3 mg/dL (8.5-10.1); CARBON DIOXIDE 29.4 mmol/L (21.0-32.0); CREATININE - SERUM 8.3 mg/dL (0.6-1.3); POTASSIUM - SERUM 3.9 mmol/L (3.5-5.1); PROTEIN - SERUM 5.3 g/dL (6.4-8.2)
[2020-06-05 08:26] VITALS: BP 124/64
--- NOTE | 2020-06-05 11:46 | NUR ---
FSBS 236. 10 UNITS HUMULIN ADMINISTERED PER SLIDING SCALE.
[2020-06-05 11:48] VITALS: BP 130/64
[2020-06-05 15:24] VITALS: BP 141/70
--- NOTE | 2020-06-05 16:44 | NUR ---
FSBS 316. 12 UNITS HUMULIN ADMINISTERED PER SLIDING SCALE.
--- NOTE | 2020-06-05 19:22 | NUR ---
RECIEVED UP IN BED WITH EYES OPEN AND TV ON. ALERT AND ORIENTED X4. REMAINS BEDFAST. USES URINAL. HAS VERY LITTLE OUTPUT. IV TO RT HAND AND RT CHEST HEMOSPLIT BOTH SL. DENIES ANY NEEDS AT THIS TIME.
[2020-06-05 20:30] VITALS: BP 131/63
[2020-06-06 00:45] VITALS: BP 126/63
[2020-06-06 04:30] VITALS: BP 149/71
[2020-06-06 06:54] LABS: BASOPHILS 0.1 % (0-2); EOSINOPHILS 0 % (0-7); HEMATOCRIT 27.2 % (42.0-54.0); HEMOGLOBIN 8.6 g/dL (13.5-17.5); IMMATURE GRANULOCYTES 0.9 % (0-5); LYMPHOCYTES 10.1 % (15-50); MCH 25.7 pg (26.0-34.0); MCHC 31.6 g/dL (31.0-37.0); MCV 81.4 fL (80.0-100.0); MEAN PLATELET VOLUME 11.2 fL (7.4-10.4); MONOCYTES 5.9 % (2-11); PLATELET COUNT 284 10x3/uL (130-400); RBC 3.34 10x6/uL (4.20-6.10); RDW 13.8 % (11.5-14.5); WBC 10.4 10x3/uL (4.8-10.8)
[2020-06-06 07:31] LABS: ALBUMIN 1.7 g/dL (3.4-5.0); ANION GAP 13.3 mmol/L (8-16); BILIRUBIN - TOTAL 0.18 mg/dL (0.2-1.3); CALCIUM 8.3 mg/dL (8.5-10.1); CARBON DIOXIDE 26.9 mmol/L (21.0-32.0); CREATININE - SERUM 9.7 mg/dL (0.6-1.3); POTASSIUM - SERUM 4.2 mmol/L (3.5-5.1); PROTEIN - SERUM 5.3 g/dL (6.4-8.2)
[2020-06-06 08:36] VITALS: BP 140/69
--- NOTE | 2020-06-06 09:10 | NUR ---
WHILE IN PT'S ROOM PT'S CALLED PT AND STATED TO HIM THAT SHE CAN NOT COME GET HIM AND PT WILL HAVE TO GO BY EMS. PT STATED THIS TO ME. I VERBALIZED UNDERSTANDING AND STATED I WILL LATE CASE MANAGEMENT KNOW. PT VERBALIZED UNDERSTANDING. SPOKE WITH FORMING TUBE SELECTOR AND SHE STATES SHE HAS ALREADY SPOKEN TO PT'S AND HE WILL GO BY EMS HE JUST HAS TO GET DIALYSIS FIRST BEFORE DC. I VERBALIZED UNDERSTANDING.
--- NOTE | 2020-06-06 09:17 | NUR ---
SPOKE WITH DIALYSIS ABOUT PT BEING FIRST BECAUSE HE IS BEING DC'D/ SHE STATES SHE HAS A PT IN ICU, IN ER AND ONE THAT IS GOING SX THAT SHE HAS TO GET DONE BEFORE PT. I VERBALIZED UNDERSTANDING. SHE STATES SHE WILL CALL AND LET MOE KNOW. I VERBALIZED UNDERSTANDING. AND I STATED THIS CONVERSATION TO CASE MANAGEMENT AND SHE VERBALIZED UNDERSTANDING.
--- NOTE | 2020-06-06 10:12 | NUR ---
DIALYSIS IN PT'S ROOM.
[2020-06-06] MEDS ORDERED: COREG12.5 MG PO (12:00)
[2020-06-06] MEDS ORDERED: CATAPRES TTS-3 TRANSDERM (12:02)
[2020-06-06] MEDS ORDERED: ASPIRIN81 MG PO (12:02)
[2020-06-06] MEDS ORDERED: HYDRALAZINE HCL50 MG PO (12:02)
[2020-06-06] MEDS ORDERED: PHOSLO667 MG PO (12:03)
[2020-06-06] MEDS ORDERED: SODIUM BICARBO650 MG PO (12:03)
[2020-06-06] MEDS ORDERED: ULORIC40 MG PO (12:06)
--- NOTE | 2020-06-06 13:06 | NUR ---
SPOKE WITH PT AND HE STATES HE DOES NOT AND HAS NO SEEN A PATTERN MAKER PROGRAMER/ONCOLOGIST BEFORE. STATED THIS TO MOE RUBIO AND SHE STATES TO HAVE HIS PCP RECHECK FLC, SIEP, AND UIEP AND DEPENDING ON WHAT THEY ARE HIS PCP CAN SET HIM UP WITH A PATTERN MAKER PROGRAMER/ONCOLOGIST. I VERBALIZED UNDERSTANDING.
--- NOTE | 2020-06-06 13:09 | NUR ---
SPOKE WITH BROOKE MCGUIRE AND SHE STATES THE MED IT WOULD NOT LET SHILO RUBIO SEND IN WAS THE HYDRALAZINE. I VERBALIZED UNDERSTANDING.
--- NOTE | 2020-06-06 13:25 | NUR ---
SPOKE WITH MOE RUBIO AND SHE STATES PT DOES NOT NEED TO BE DC HOME ON STEROIDS. I VERBALIZED UNDERSTANDING.
--- NOTE | 2020-06-06 13:40 | NUR ---
CALLED IN HYDRALAZINE, COREG, AND CATARPES THAT DID NOT GET SENT THROUGH [facility] TO [facility] IN [place].
--- NOTE | 2020-06-06 13:46 | NUR ---
PHARMACY CALLED AND STATED ULORIC IS NOT COVERED AND THEY SUGGEST ALLOPURINOL. CALLED AND SPOKE WITH SHILO RUBIO AND SHE STATES TO ORDER ALLOPURINOL 100MG DAILY AND TO ORDER CARAFTE 1G ACHS PO TWO WEEK SUPPLY. I VERBALIZED UNDERSTANDING. CALLED AND SPOKE WITH JL GUERRA AND STATED THIS TO HER AND SHE VERBALIZED UNDERSTANDING.
[2020-06-06] MEDS ORDERED: CARAFATE1 G PO (13:50)
[2020-06-06] MEDS ORDERED: ZYLOPRIM100 MG PO (13:50)
--- NOTE | 2020-06-06 13:54 | MORECARE ---
CASE MANAGEMENT DISCHARGE SUMMARY PATIENT: ROSCOE BARBOSA UNIT: [id number] ADM DATE: 05/22/20 AGE: 60 : 62 SEX: M ROOM/BED: D.2132 AUTHOR: HAYLEEDOC PHYSICIAN: REFERRING PHYSICIAN: ARTEM NAIK MD DATE OF SERVICE: 06/06/20 Discharge Plan Patient Name: ROSCOE BARBOSA Facility: [facility]:[place] : 1960 Planned Disposition: Anticipated Discharge Date: Discharge Date: Expected LOS: Initial Reviewer: [email or web address] Initial Review Date: 05/23/2020 Generated: 06/06/20 2:53 pm Comments DCP- Discharge Planning Updated by [email or web address]: Mel Ricketts on 06/02/20 3:[address] CM received a call from Lyndsey about rehabs. Lyndsey states CM should send referrals to [place], [place], [place] or anywhere that will take him. CM instructed Lyndsey that the pt is getting set up with an outpatient dialysis chair time. States that SNF may not accept the patient to a dialysis center several hours away. Reeducated to Lyndsey that her is his own decision maker, states that he has voiced several times that he does not want to go to rehab. Lyndsey states that she just spoke with her and she convinced him to go to rehab, but he wants a couple of days home prior to going. Lyndsey states she is in quarantine so she cant pick him up or take him to dialysis. CM educated Lyndsey on maintaining social distancing, infection prevention, and hand washing. CM educated that when the patient is discharged she will drive up to the hospital, and then call the nurses station to have her brought out to her car. Lyndsey verbalized understanding. Cm called pt room and spoke to him. Pt states he feels weak, but PT is working with him. States he does not wan to go to rehab. Mel Ricketts MSN,RN,CM DCP- Discharge Planning Updated by [id number]: Mel Ricketts on 06/01/20 3:[address] CM received a call from Lyndsey () [phone]. Lyndsey states she has osteoporosis and is unable to care for her at home. States she wants CM to force her into rehab in a custodial. CM states she can encourage her into rehab, but it is his decision as long as he can make his own decisions. CM called pt in room about SNF. Pt states he will need to talk to his about rehab and will get back with CM. States CM can call back in the morning for the answer. Lyndsey states she wants CM to send referrals to [place], and any facility in the surrounding areas. JOHN PAUL states the Dialysis coordinator is working on placement for outpatient dialysis. Lyndsey states it is ok to send referrals to all facilities in the [facility]. CM spoke with Evette from [facility] for referral. States they are unable to meet his dialysis needs at this time. CM spoke with Diana at [place] who states they do not have an available male bed at this time. CM will continue to assist in dc planning/needs. Mel STOCK,RN,CM DCP- Discharge Planning Updated by [email or web address]: Mel Ricketts on 06/01/20 3:[address] Patient Name: ROSCOE BARBOSA Admission Status: ER Accout number: [id number] Admission Date: 05-22-2020 : 1960 Admission Diagnosis:COVID-19 Attending: HEENA, Current LOS: 10 Anticipated DC Date: Planned Disposition: Primary Insurance: [employer] OUT OF STATE Discharge Planning Comments: CM met with patient to complete initial dc planning assessment. CM educated patient on the CM role and verbal consent given by patient to complete assessment. CM verified patient's address, phone number, and emergency contact phone numbers. Patient lives at home with his Lyndsey [phone]. At discharge patient plans to return home and feels this is a safe discharge. CM discussed availability of home health, rehab services, and medical equipment. Patient denied known discharge needs at this time. Pt verbalized declination to any rehab. Transportation provider at discharge will be Lyndsey . CM will continue to follow and will assist as needed with dc plans/needs. Printing Agent: Mel Ricketts DCP- Discharge Planning Updated by [email or web address]: Mel Ricketts on 06/01/20 3:[address] Late entry. 05/31/20 pt refused to talk to CM. Pt states he is busy the moment. CM will continue to assist in dc planning/needs. Mel Ricketts DCP- Discharge Planning Updated by [email or web address]: Mel Ricketts on 05/30/20 12:[address] CM spoke with Farheen the dialysis coordinator about outpatient dialysis chair. Farheen states she is working on placement, and initial labs are pending. Cm will continue assisting as needed with DC planning/needs. Mel Ricketts External Providers External Provider: OTHER-OTHER Next Contact Date: Service Request Date: Service Type: Resolution: Reviewer: Comments: Coverage Notice Reviewer: [email or web address] Aj Ricketts Notice Issued Date-Time: 05/22/2020 12:00 Notice Type: Patient Choice Letter Notice Delivered To: Patient Relationship to Patient: Self Drug Purchaser Name: Delivery Method: PHONE - Phone Itzel Days: Prior Verbal Notification: Yes Recipient Understood Notice: Yes Recipient Signature: Med Rec Note Co-signed by Attending: Coverage Notice Comment: refused rehab, snf, dme Reviewer: [email or web address] Aj Ricketts Notice Issued Date-Time: 06/01/2020 16:00 Notice Type: Patient Choice Letter Notice Delivered To: Patient Relationship to Patient: Self Drug Purchaser Name: Delivery Method: PHONE - Phone Itzel Days: Prior Verbal Notification: Yes Recipient Understood Notice: Yes Recipient Signature: Med Rec Note Co-signed by Attending: Coverage Notice Comment: refused snf Reviewer: [email or web address] Aj Ricketts Notice Issued Date-Time: 06/06/2020 12:06 Notice Type: Patient Choice Letter Notice Delivered To: Patient Relationship to Patient: Self Drug Purchaser Name: Delivery Method: PHONE - Phone Itzel Days: Prior Verbal Notification: Yes Recipient Understood Notice: Yes Recipient Signature: Med Rec Note Co-signed by Attending: Coverage Notice Comment: refused HH, agree to have HH Kindered Reviewer: [id number] Aj Ricketts Notice Issued Date-Time: 06/06/2020 12:06 Notice Type: IM Discharge Notice Notice Delivered To: Patient Relationship to Patient: Self Drug Purchaser Name: Delivery Method: PHONE - Phone Itzel Days: Prior Verbal Notification: Yes Recipient Understood Notice: Yes Recipient Signature: Med Rec Note Co-signed by Attending: Coverage Notice Comment: per phone conrsation. Copy provided to pt by nurse Oral ROACH export: 06/02/20 3:31 p Patient Name: ROSCOE BARBOSA Page [id number] at 1354 All edits/amendments must be made on the electronic document DICTATION DATE: 06/06/201352 GRAIN COMBINE DRIVER: RONI 06/06/201352 RPT#: [id number] DC DATE: STATUS: ADM IN [facility] [address] [place] [address] END OF REPORT
--- NOTE | 2020-06-06 14:31 | NUR ---
PT COVID POSITIVE AND UNABLE TO SIGN DISCHARGE PAPERS. CALLED [facility] AND THEY STATE THEY WILL BE HERE IN 30-45MIN. I VERBALIZED UNDERSTANDING.
--- NOTE | 2020-06-06 14:40 | MORECARE ---
CASE MANAGEMENT DISCHARGE SUMMARY PATIENT: ROSCOE BARBOSA UNIT: [id number] ADM DATE: 05/22/20 AGE: 60 : 62 SEX: M ROOM/BED: D.2132 AUTHOR: HAYLEE,DOC PHYSICIAN: REFERRING PHYSICIAN: ARTEM NAIK MD DATE OF SERVICE: 06/06/20 Discharge Plan Patient Name: ROSCOE BARBOSA Facility: [facility]:[place] : 1960 Planned Disposition: Anticipated Discharge Date: Discharge Date: Expected LOS: Initial Reviewer: [email or web address] Initial Review Date: 05/23/2020 Generated: 06/06/20 3:39 pm Comments DCP- Discharge Planning Updated by [email or web address]: Mel Ricketts on 06/06/20 1:[address] Patient Name: ROSCOE BARBOSA Encounter No: [id number] : 1960 Primary Insurance: [employer] OUT OF STATE Anticipated DC Date: Planned Disposition: External Planned Provider: : DCP follow-up note: Pt called CM multiple times stating that was not able to pickers material handlers her because she has osteoporosis. Ms Barbosa states she will need an Ambulance to take him home. CM states that the patient will be provided an Ambulance per her request. She also requests that CM make him go to rehab. CM reiterated that the patient is within his right mind and can make decisions. CM called pt room and spoke to patient about SNF, DME, and home health services. Pt was in agreement to have home health. CM called [facility] per request at the [place] office and spoke to Gogo at [phone] and faxed referral. [facility] welcome letter was provided. the patient will go to dialysis M-W-F at 2 PM. DC IMM delivered, explained, voiced understanding by the patient, and placed in chart. Form also left with the patient. Patient and family in agreement with discharge plan. No changes to plan. Case management will follow and assist as needed. Mel Ricketts MSN,RN,CM DCP- Discharge Planning Updated by [email or web address]: Mel Ricketts on 06/02/20 3:[address] CM received a call from Lyndsey about rehabs. Lyndsey states CM should send referrals to [place], [place] or anywhere that will take him. CM instructed Lyndsey that the pt is getting set up with an outpatient dialysis chair time. States that SNF may not accept the patient to a dialysis center several hours away. Reeducated to Lyndsey that her is his own decision maker, states that he has voiced several times that he does not want to go to rehab. Lyndsey states that she just spoke with her and she convinced him to go to rehab, but he wants a couple of days home prior to going. Lyndsey states she is in quarantine so she cant pick him up or take him to dialysis. CM educated Lyndsey on maintaining social distancing, infection prevention, and hand washing. CM educated that when the patient is discharged she will drive up to the hospital, and then call the nurses station to have her brought out to her car. Lyndsey verbalized understanding. Cm called pt room and spoke to him. Pt states he feels weak, but PT is working with him. States he does not wan to go to rehab. Mel STOCK,RN, DCP- Discharge Planning Updated by [email or web address]: Mel Ricketts on 06/01/20 3:[address] CM received a call from Lyndsey () [phone]. Lyndsey states she has osteoporosis and is unable to care for her at home. States she wants CM to force her into rehab in a jail. CM states she can encourage her into rehab, but it is his decision as long as he can make his own decisions. CM called pt in room about SNF. Pt states he will need to talk to his about rehab and will get back with CM. States CM can call back in the morning for the answer. Lyndsey states she wants CM to send referrals to [place], and any facility in the surrounding areas. JOHN PAUL states the Dialysis coordinator is working on placement for outpatient dialysis. Lyndsey states it is ok to send referrals to all facilities in the [facility]. JOHN PAUL spoke with Evette from [facility] for referral. States they are unable to meet his dialysis needs at this time. JOHN PAUL spoke with Diana at [place] who states they do not have an available male bed at this time. CM will continue to assist in dc planning/needs. Mel Edds MSN,RN,CM DCP- Discharge Planning Updated by [email or web address]: Mel Ricketts on 06/01/20 3:[address] Patient Name: ROSCOE BARBOSA Admission Status: ER Accout number: [id number] Admission Date: 05-22-2020 : 1960 Admission Diagnosis:COVID-19 Attending: HEENA, Current LOS: 10 Anticipated DC Date: Planned Disposition: Primary Insurance: [employer] OUT OF STATE Discharge Planning Comments: CM met with patient to complete initial dc planning assessment. CM educated patient on the CM role and verbal consent given by patient to complete assessment. CM verified patient's address, phone number, and emergency contact phone numbers. Patient lives at home with his Lyndsey [phone]. At discharge patient plans to return home and feels this is a safe discharge. CM discussed availability of home health, rehab services, and medical equipment. Patient denied known discharge needs at this time. Pt verbalized declination to any rehab. Transportation provider at discharge will be Lyndsey . CM will continue to follow and will assist as needed with dc plans/needs. Concrete Boom Pump Operator: Mel Ricketts DCP- Discharge Planning Updated by [email or web address]: Mel Ricketts on 06/01/20 3:[address] Late entry. 05/31/20 pt refused to talk to CM. Pt states he is busy the moment. CM will continue to assist in dc planning/needs. Mel Ricketts DCP- Discharge Planning Updated by [email or web address]: Mel Ricketts on 05/30/20 12:[address] CM spoke with Farheen the dialysis coordinator about outpatient dialysis chair. Farheen states she is working on placement, and initial labs are pending. Cm will continue assisting as needed with DC planning/needs. Mel Ricketts Coverage Notice Reviewer: [email or web address] - Mel Ricketts Notice Issued Date-Time: 06/06/2020 12:06 Notice Type: IM Discharge Notice Notice Delivered To: Patient Relationship to Patient: Self Maintenance Supervisor Mechanical Name: Delivery Method: PHONE - Phone Itzel Days: Prior Verbal Notification: Yes Recipient Understood Notice: Yes Recipient Signature: Med Rec Note Co-signed by Attending: Coverage Notice Comment: per phone conrsation. Copy provided to pt by nurse Reviewer: [id number] Aj Ricketts Notice Issued Date-Time: 06/06/2020 12:06 Notice Type: Patient Choice Letter Notice Delivered To: Patient Relationship to Patient: Self Maintenance Supervisor Mechanical Name: Delivery Method: PHONE - Phone Itzel Days: Prior Verbal Notification: Yes Recipient Understood Notice: Yes Recipient Signature: Med Rec Note Co-signed by Attending: Coverage Notice Comment: refused HH, agree to have HH Kindered Reviewer: [email or web address] Aj Ricketts Notice Issued Date-Time: 06/01/2020 16:00 Notice Type: Patient Choice Letter Notice Delivered To: Patient Relationship to Patient: Self Maintenance Supervisor Mechanical Name: Delivery Method: PHONE - Phone Itzel Days: Prior Verbal Notification: Yes Recipient Understood Notice: Yes Recipient Signature: Med Rec Note Co-signed by Attending: Coverage Notice Comment: refused snf Reviewer: CHARLES Ricketts Notice Issued Date-Time: 05/22/2020 12:00 Notice Type: Patient Choice Letter Notice Delivered To: Patient Relationship to Patient: Self Maintenance Supervisor Mechanical Name: Delivery Method: PHONE - Phone Itzel Days: Prior Verbal Notification: Yes Recipient Understood Notice: Yes Recipient Signature: Med Rec Note Co-signed by Attending: Coverage Notice Comment: refused rehab, snf, dme Last DP export: 06/06/20 12:54 Patient Name: ROSCOE BARBOSA Page [id number] at 1440 All edits/amendments must be made on the electronic document DICTATION DATE: 06/06/201438 BED OPERATOR: RONI 06/06/20 143 RPT#: [id number] ME DATE: STATUS: ADM IN [facility] [address] [place] [address] END OF REPORT
--- NOTE | 2020-06-06 15:07 | NUR ---
REVIEWED S[facility] AND EXPLAINED TO PT. PT VERBALIZED UNDERSTANDING.
--- NOTE | 2020-06-06 15:10 | NUR ---
RIGHT WRIST 20G IV DC'D WITH CATH INTACT.
[2020-06-06 15:11] LABS: IMMUNOFIXATION Note: (()); IMMUNOGLOBULIN A 203 mg/dL (90-386); IMMUNOGLOBULIN G 1016 mg/dL (603-1613); IMMUNOGLOBULIN M 152 mg/dL (20-172)
--- NOTE | 2020-06-06 15:18 | NUR ---
PT'S BELONGINGS PACKED UP AND PT DRESSED AND READY TO BE DC'D. JUST WAITING ON EMS.
--- NOTE | 2020-06-06 16:15 | NUR ---
I have reviewed this patient and I concur with the Shift Assessment completed by the Licensed Practical Nurse today this shift.
--- NOTE | 2020-06-06 16:29 | NUR ---
CALLED AND SPOKE WITH [facility] PT'S AND STATED PT JUST LEFT VIA AMBULANCE WITH ALL BELONGINGS. SHE VERBALIZED UNDERSTANDING.
--- NOTE | 2020-06-06 18:36 | MORECARE ---
CASE MANAGEMENT DISCHARGE SUMMARY PATIENT: ROSCOE BARBOSA UNIT: [id number] ADM DATE: 05/22/20 AGE: 60 : 62 SEX: M ROOM/BED: D.2132 AUTHOR: HAYLEE,DOC PHYSICIAN: REFERRING PHYSICIAN: ARTEM NAIK MD DATE OF SERVICE: 06/06/20 Discharge Plan Patient Name: ROSCOE BARBOSA Facility: [facility]:[place] : 1960 Planned Disposition: Anticipated Discharge Date: Discharge Date: 06/06/2020 Expected LOS: Initial Reviewer: [id number] Initial Review Date: 05/23/2020 Generated: 06/06/20 7:36 pm Comments DCP- Discharge Planning Updated by [email or web address]: Mel Ricketts on 06/06/20 5:[address] Patient Name: ROSCOE BARBOSA Admission Status: ER Accout number: [id number] Admission Date: 05-22-2020 : 1960 Admission Diagnosis:COVID-19 Attending: HEENA, Current LOS: 15 Anticipated DC Date: Planned Disposition: Primary Insurance: [employer] OUT OF STATE Late Entry 1635 Discharge Planning Comments: CM received 3 way call from Lyndsey, and pt PCP nurse (Alejandrina) about home health services. Alejandrina states the practice does not follow [facility] services, instead the clinicals would need to be sent to [facility]. The patient has already been discharged so Cm received authorization from Lyndsey. CM faxed clinicals to [facility] at [phone]. Mel Ricketts DCP- Discharge Planning Updated by [email or web address]: Mel Ricketts on 06/06/20 1:[address] Patient Name: ROSCOE BARBOSA Encounter No: [id number] : 1960 Primary Insurance: BLUE [email or web address] OUT OF STATE Anticipated DC Date: Planned Disposition: External Planned Provider: : DCP follow-up note: Pt called CM multiple times stating that was not able to crop picker her because she has osteoporosis. Ms Barbosa states she will need an Ambulance to take him home. CM states that the patient will be provided an Ambulance per her request. She also requests that CM make him go to rehab. CM reiterated that the patient is within his right mind and can make decisions. CM called pt room and spoke to patient about SNF, DME, and home health services. Pt was in agreement to have home health. CM called [facility] per request at the [place] office and spoke to Gogo at [phone] and faxed referral. [facility] welcome letter was provided. the patient will go to dialysis - at 2 PM. DC IMM delivered, explained, voiced understanding by the patient, and placed in chart. Form also left with the patient. Patient and family in agreement with discharge plan. No changes to plan. Case management will follow and assist as needed. Mel STOCK,RN,CM DCP- Discharge Planning Updated by [id number]: Mel Ricketts on 06/02/20 3:[address] CM received a call from Lyndsey about rehabs. Lyndsey states CM should send referrals to [place], [place], [place] or anywhere that will take him. JOHN PAUL instructed Lyndsey that the pt is getting set up with an outpatient dialysis chair time. States that SNF may not accept the patient to a dialysis center several hours away. Reeducated to Lyndsey that her is his own decision maker, states that he has voiced several times that he does not want to go to rehab. Lyndsey states that she just spoke with her and she convinced him to go to rehab, but he wants a couple of days home prior to going. Lyndsey states she is in quarantine so she cant pick him up or take him to dialysis. CM educated Lyndsey on maintaining social distancing, infection prevention, and hand washing. CM educated that when the patient is discharged she will drive up to the hospital, and then call the nurses station to have her brought out to her car. Lyndsey verbalized understanding. Cm called pt room and spoke to him. Pt states he feels weak, but PT is working with him. States he does not wan to go to rehab. Mel STOCK,RN,CM DCP- Discharge Planning Updated by [email or web address]: Mel Ricketts on 06/01/20 3:[address] CM received a call from Lyndsey () [phone]. Lyndsey states she has osteoporosis and is unable to care for her at home. States she wants CM to force her into rehab in a skilled nursing. CM states she can encourage her into rehab, but it is his decision as long as he can make his own decisions. CM called pt in room about SNF. Pt states he will need to talk to his about rehab and will get back with CM. States CM can call back in the morning for the answer. Lyndsey states she wants CM to send referrals to [place], and any facility in the surrounding areas. CM states the Dialysis coordinator is working on placement for outpatient dialysis. Lyndsey states it is ok to send referrals to all facilities in the [facility]. CM spoke with Evette from [facility] for referral. States they are unable to meet his dialysis needs at this time. CM spoke with Diana at [facility] who states they do not have an available male bed at this time. CM will continue to assist in dc planning/needs. Mel STOCK,RN,CM DCP- Discharge Planning Updated by [id number]: Mel Ricketts on 06/01/20 3:[address] Patient Name: ROSCOE BARBOSA Admission Status: ER Accout number: [id number] Admission Date: 05-22-2020 : 1960 Admission Diagnosis:COVID-19 Attending: HEENA, Current LOS: 10 Anticipated DC Date: Planned Disposition: Primary Insurance: [employer] [place] OUT OF STATE Discharge Planning Comments: CM met with patient to complete initial dc planning assessment. CM educated patient on the CM role and verbal consent given by patient to complete assessment. CM verified patient's address, phone number, and emergency contact phone numbers. Patient lives at home with his Lyndsey [phone]. At discharge patient plans to return home and feels this is a safe discharge. CM discussed availability of home health, rehab services, and medical equipment. Patient denied known discharge needs at this time. Pt verbalized declination to any rehab. Transportation provider at discharge will be Lyndsey . CM will continue to follow and will assist as needed with dc plans/needs. Cargo Router: Mel Ricketts DCP- Discharge Planning Updated by [id number]: Mel Ricketts on 06/01/20 3:[address] Late entry. 05/31/20 pt refused to talk to CM. Pt states he is busy the moment. CM will continue to assist in dc planning/needs. Mel Ricketts DCP- Discharge Planning Updated by [id number]: Mel Ricketts on 05/30/20 12:[address] CM spoke with Farheen the dialysis coordinator about outpatient dialysis chair. Farheen states she is working on placement, and initial labs are pending. Cm will continue assisting as needed with DC planning/needs. eMl Ricketts Coverage Notice Reviewer: [id number] Aj Ricketts Notice Issued Date-Time: 05/22/2020 12:00 Notice Type: Patient Choice Letter Notice Delivered To: Patient Relationship to Patient: Self Diamond Merchant Name: Delivery Method: PHONE - Phone Itzel Days: Prior Verbal Notification: Yes Recipient Understood Notice: Yes Recipient Signature: Med Rec Note Co-signed by Attending: Coverage Notice Comment: refused rehab, snf, dme Reviewer: [id number] Aj Ricketts Notice Issued Date-Time: 06/01/2020 16:00 Notice Type: Patient Choice Letter Notice Delivered To: Patient Relationship to Patient: Self Diamond Merchant Name: Delivery Method: PHONE - Phone Itzel Days: Prior Verbal Notification: Yes Recipient Understood Notice: Yes Recipient Signature: Med Rec Note Co-signed by Attending: Coverage Notice Comment: refused snf Reviewer: [email or web address] Aj Ricketts Notice Issued Date-Time: 06/06/2020 12:06 Notice Type: Patient Choice Letter Notice Delivered To: Patient Relationship to Patient: Self Diamond Merchant Name: Delivery Method: PHONE - Phone Itzel Days: Prior Verbal Notification: Yes Recipient Understood Notice: Yes Recipient Signature: Med Rec Note Co-signed by Attending: Coverage Notice Comment: refused HH, agree to have HH Kindered Reviewer: [id number] Aj Ricketts Notice Issued Date-Time: 06/06/2020 12:06 Notice Type: IM Discharge Notice Notice Delivered To: Patient Relationship to Patient: Self Diamond Merchant Name: Delivery Method: PHONE - Phone Itzel Days: Prior Verbal Notification: Yes Recipient Understood Notice: Yes Recipient Signature: Med Rec Note Co-signed by Attending: Coverage Notice Comment: per phone conrsation. Copy provided to pt by nurse Oral ROACH export: 06/06/20 1:40 Patient Name: ROSCOE BARBOSA Page [id number] at 1836 All edits/amendments must be made on the electronic document DICTATION DATE: 06/06/201835 LEAD SOFTWARE ENGINEER: RONI 06/06/201835 RPT#: [id number] DC DATE:06/06/20 STATUS: DIS IN [facility] [address] [place] [address] END OF REPORT
--- NOTE | 2020-06-06 18:43 | MORECARE ---
CASE MANAGEMENT DISCHARGE SUMMARY PATIENT: ROSCOE BARBOSA UNIT: [id number] ADM DATE: 05/22/20 AGE: 60 : 62 SEX: M ROOM/BED: D.2132 AUTHOR: HAYLEEDOC PHYSICIAN: REFERRING PHYSICIAN: ARTEM NAIK MD DATE OF SERVICE: 06/06/20 Discharge Plan Patient Name: ROSCOE BARBOSA Facility: [facility]:[place] : 1960 Planned Disposition: Anticipated Discharge Date: Discharge Date: 06/06/2020 Expected LOS: 0 Initial Reviewer: [id number] Initial Review Date: 05/23/2020 Generated: 06/06/20 7:42 pm Comments DCP- Discharge Planning Updated by [id number]: Mel Ricketts on 06/06/20 5:[address] Patient Name: ROSCOE BARBOSA Admission Status: ER Accout number: [id number] Admission Date: 05-22-2020 : 1960 Admission Diagnosis:COVID-19 Attending: HEENA, Current LOS: 15 Anticipated DC Date: Planned Disposition: Primary Insurance: [employer] OUT OF STATE Late Entry 1635 Discharge Planning Comments: CM received [address] way call from Lyndsey, and pt PCP nurse (Alejandrina) about home health services. Alejandrina states the practice does not follow [facility] services, instead the clinicals would need to be sent to [facility]. The patient has already been discharged so Cm received authorization from Lyndsey. CM faxed clinicals to [facility] at [phone]. 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 Ms Barbosa states she will need an Ambulance to take him home. CM states that the patient will be provided an Ambulance per her request. She also requests that CM make him go to rehab. CM reiterated that the patient is within his right mind and can make decisions. CM called pt room and spoke to patient about SNF, DME, and home health services. Pt was in agreement to have home health. CM called [facility] per request at the [place] office and spoke to Gogo at [phone] and faxed referral. [facility] welcome letter was provided. the patient will go to dialysis - at 2 PM. DC IMM delivered, explained, voiced understanding by the patient, and placed in chart. Form also left with the patient. Patient and family in agreement with discharge plan. No changes to plan. Case management will follow and assist as needed. eMl STOCK,RN,CM DCP- Discharge Planning Updated by [id number]: Mel Ricketts on 06/02/20 3:[address] CM received a call from Lyndsey about rehabs. Lyndsey states CM should send referrals to [place], [place], [place] or anywhere that will take him. JOHN PAUL instructed Lyndsey that the pt is getting set up with an outpatient dialysis chair time. States that SNF may not accept the patient to a dialysis center several hours away. Reeducated to Lyndsey that her is his own decision maker, states that he has voiced several times that he does not want to go to rehab. Lyndsey states that she just spoke with her and she convinced him to go to rehab, but he wants a couple of days home prior to going. Lyndsey states she is in quarantine so she cant pick him up or take him to dialysis. CM educated Lyndsey on maintaining social distancing, infection prevention, and hand washing. CM educated that when the patient is discharged she will drive up to the hospital, and then call the nurses station to have her brought out to her car. Lyndsey verbalized understanding. Cm called pt room and spoke to him. Pt states he feels weak, but PT is working with him. States he does not wan to go to rehab. Mel STOCK,RN,CM DCP- Discharge Planning Updated by [id number]: Mel Ricketts on 06/01/20 3:[address] CM received a call from Lyndsey () [phone]. Lyndsey states she has osteoporosis and is unable to care for her at home. States she wants CM to force her into rehab in a half-way. CM states she can encourage her into rehab, but it is his decision as long as he can make his own decisions. CM called pt in room about SNF. Pt states he will need to talk to his about rehab and will get back with CM. States CM can call back in the morning for the answer. Lyndsey states she wants CM to send referrals to [facility], and any facility in the surrounding areas. CM states the Dialysis coordinator is working on placement for outpatient dialysis. Lyndsey states it is ok to send referrals to all facilities in the [facility]. CM spoke with Evette from [facility] for referral. States they are unable to meet his dialysis needs at this time. CM spoke with Diana at [facility] who states they do not have an available male bed at this time. CM will continue to assist in dc planning/needs. Mel STOCK,RN,CM DCP- Discharge Planning Updated by [id number]: Mel Ricketts on 06/01/20 3:[address] Patient Name: ROSCOE BARBOSA Admission Status: ER Accout number: [id number] Admission Date: 05-22-2020 : 1960 Admission Diagnosis:COVID-19 Attending: HEENA, Current LOS: 10 Anticipated DC Date: Planned Disposition: Primary Insurance: [employer] OUT OF STATE Discharge Planning Comments: CM met with patient to complete initial dc planning assessment. CM educated patient on the CM role and verbal consent given by patient to complete assessment. CM verified patient's address, phone number, and emergency contact phone numbers. Patient lives at home with his Lyndsey [phone]. At discharge patient plans to return home and feels this is a safe discharge. CM discussed availability of home health, rehab services, and medical equipment. Patient denied known discharge needs at this time. Pt verbalized declination to any rehab. Transportation provider at discharge will be Lyndsey . CM will continue to follow and will assist as needed with dc plans/needs. Field Party Manager: Mel Ricketts DCP- Discharge Planning Updated by [id number]: Mel Ricketts on 06/01/20 3:[address] Late entry. 05/31/20 pt refused to talk to CM. Pt states he is busy the moment. CM will continue to assist in dc planning/needs. Mel Ricketts DCP- Discharge Planning Updated by [id number]: Mel Ricketts on 05/30/20 12:[address] CM spoke with Farheen the dialysis coordinator about outpatient dialysis chair. Farheen states she is working on placement, and initial labs are pending. Cm will continue assisting as needed with DC planning/needs. Mel Ricketts Coverage Notice Reviewer: [id number] Aj Ricketts Notice Issued Date-Time: 06/06/2020 12:06 Notice Type: IM Discharge Notice Notice Delivered To: Patient Relationship to Patient: Self Project Development Engineer Name: Delivery Method: PHONE - Phone Itzel Days: Prior Verbal Notification: Yes Recipient Understood Notice: Yes Recipient Signature: Med Rec Note Co-signed by Attending: Coverage Notice Comment: per phone conrsation. Copy provided to pt by nurse Reviewer: [id number] Aj Ricketts Notice Issued Date-Time: 06/06/2020 12:06 Notice Type: Patient Choice Letter Notice Delivered To: Patient Relationship to Patient: Self Project Development Engineer Name: Delivery Method: PHONE - Phone Itzel Days: Prior Verbal Notification: Yes Recipient Understood Notice: Yes Recipient Signature: Med Rec Note Co-signed by Attending: Coverage Notice Comment: refused HH, agree to have HH Kindered Reviewer: [id number] Aj Ricketts Notice Issued Date-Time: 06/01/2020 16:00 Notice Type: Patient Choice Letter Notice Delivered To: Patient Relationship to Patient: Self Project Development Engineer Name: Delivery Method: PHONE - Phone Itzel Days: Prior Verbal Notification: Yes Recipient Understood Notice: Yes Recipient Signature: Med Rec Note Co-signed by Attending: Coverage Notice Comment: refused snf Reviewer: [id number] Aj Ricketts Notice Issued Date-Time: 05/22/2020 12:00 Notice Type: Patient Choice Letter Notice Delivered To: Patient Relationship to Patient: Self Project Development Engineer Name: Delivery Method: PHONE - Phone Itzel Days: Prior Verbal Notification: Yes Recipient Understood Notice: Yes Recipient Signature: Med Rec Note Co-signed by Attending: Coverage Notice Comment: refused rehab, snf, dme Last DP export: 06/06/20 5:36 Patient Name: ROSCOE BARBOSA Page [id number] at 1843 All edits/amendments must be made on the electronic document DICTATION DATE: 06/06/201842 INSURANCE SALESPERSON: RONI 06/06/201842 RPT#: [id number] DC DATE:06/06/20 STATUS: DIS IN [facility] [address] [place] [address] END OF REPORT
== END 2020-06-06 16:29 | disposition home health service (06) | DRG 177 ==
LOC: D.ER 21:01 → D.M2 23:15 → D.ICU 23:15 → D.M2 05-26 23:24
PROVIDERS: Family Medicine; Family Medicine Adult Medicine; Internal Medicine Nephrology; Surgery; ADMIT Family Medicine; ATTEND Family Medicine
PROC: B5181ZA Fluoroscopy of Superior Vena Cava using Low Osmolar Contrast, Guidance (ICD-10-PCS; 2020-05-26)
PROC: 5A1D70Z Performance of Urinary Filtration, Intermittent, Less than 6 Hours Per Day (ICD-10-PCS; 2020-05-26)
PROC: 02HV33Z Insertion of Infusion Device into Superior Vena Cava, Percutaneous Approach (ICD-10-PCS; principal; 2020-05-26 12:30)
DX: U07.1 COVID-19 (principal); N18.6 End stage renal disease; E43 Unspecified severe protein-calorie malnutrition; N17.9 Acute kidney failure, unspecified; I13.2 Hypertensive heart and chronic kidney disease with heart failure and with stage 5 chronic kidney disease, or end stage renal disease; Z68.1 Body mass index [BMI] 19.9 or less, adult; I50.9 Heart failure, unspecified; D63.1 Anemia in chronic kidney disease; I25.10 Atherosclerotic heart disease of native coronary artery without angina pectoris; F14.10 Cocaine abuse, uncomplicated; E11.22 Type 2 diabetes mellitus with diabetic chronic kidney disease; E11.40 Type 2 diabetes mellitus with diabetic neuropathy, unspecified; E87.6 Hypokalemia; D50.9 Iron deficiency anemia, unspecified